=== PATIENT | female | born 1935 | race Caucasian/White ===

== ENCOUNTER 2017-06-29 19:58 | Inpatient (IN) | payer MEDICAID, OTHER ==
--- NOTE | 2017-06-29 20:07 | EDPHY ---
HPI/HX/ROS/PE/MDM Narrative: CHIEF COMPLAINT: Leg edema, unable to walk HPI: The patient is an anticoagulated 82 y/o female arriving via EMS complaining of worsening leg edema causing difficulty moving through her apartment. Her medical history includes WV, CVA, atrial fibrillation, CHF, pulmonary hypertension, peripheral vascular disease, and COPD with chronic respiratory failure. She was admitted here 3 weeks ago for acute renal failure due to diarrhea and was discharged to a rehab facility for about 2 weeks. She returned home to [facility] today. Her Lasix was reduced from 40mg to 20mg at the time of her transfer. She was able to walk into her facility, but since then has been developing worsening edema and is now unable to walk. She denies other acute symptoms. REVIEW OF SYSTEMS: Aside from elements discussed in the HPI, a comprehensive 10-point review of systems was reviewed and is negative. PMH: 1. WV with stents () 2. CVA (2008) 3. Atrial fibrillation - no anticoagulants due to fall and intracranial hemorrhage 4. CHF 5. Pulmonary hypertension 6. Peripheral vascular disease with recurrent ulcers 7. COPD with chronic respiratory failure on chronic O2 8. Fall resulting in intracranial hemorrhage, non-surgical 9. Stasis dermatitis 10. Cholecystectomy 11. Partial thyroidectomy 12. 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 Depression Prior medical records reviewed including transfer paperwork from [facility] and 6-day admission 06/08/17 for renal insufficiency. SOCIAL HISTORY: Lives at [facility]. Nonsmoker. No alcohol. PHYSICAL EXAM: General:Patient is alert, chronically-ill appearing, obese, in no acute distress. ENT:Eyes are normal to inspection. ENT inspection normal. Neck: Normal inspection. Full range of motion. Respiratory:No respiratory distress. Breath sounds normal bilaterally. Cardiovascular: Regular rate and rhythm. Strong peripheral pulses. Normal cap refill. Abdomen:The abdomen is nontender to palpation. There are no peritoneal signs. There are normal bowel sounds. Back: Normal to inspection. No tenderness to palpation. Skin: Normal color. No rash. Warm and dry. Extremities: 3+ pitting pedal edema bilaterally with chronic venous stasis changes. Neuro: Normal motor function. Normal sensory function. ED Course: This is a chronically-ill appearing 82 y/o female who presents with significant bilateral leg edema and inability to walk hours after being discharged home from rehab. Her Lasix dose was halved upon her return home, which is likely contributing to her symptoms today. Plan for IV, labs, EKG. The 12 lead EKG was interpreted by myself. See hard copy and/or "tracemaster" electronic copy for interpretation. Spoke with hospitalist service. Dr. Gonzalez accepts admission. - Data Points Laboratory Results: Laboratory Results 06/29/17 21:01 06/29/17 21:01 06/29/17 06/29/17 21:01 21:01 WBC 9.02 10^3/uL 10^3/uL (3.80-9.50) RBC 3.03 10^6/uL L 10^6/uL (4.18-5.33) Hgb 9.4 g/dL L g/dL (12.6-16.3) Hct 27.8 % L % (38.0-47.0) MCV 91.7 fL fL (81.5-99.8) MCH 31.0 pg pg (27.9-34.1) MCHC 33.8 g/dL g/dL (32.4-36.7) RDW 16.0 % H % (11.5-15.2) Plt Count 197 10^3/uL 10^3/uL (150-400) MPV 12.1 fL H fL (8.7-11.7) Neut % (Auto) 72.1 % % (39.3-74.2) Lymph % (Auto) 12.9 % L % (15.0-45.0) [place] % (Auto) 12.7 % % (4.5-13.0) Eos % (Auto) 0.9 % % (0.6-7.6) Baso % (Auto) 0.7 % % (0.3-1.7) Nucleat RBC Rel Count 0.0 % % (0.0-0.2) Absolute Neuts (auto) 6.51 10^3/uL H 10^3/uL (1.70-6.50) Absolute Lymphs (auto) 1.16 10^3/uL 10^3/uL (1.00-3.00) Absolute Monos (auto) 1.15 10^3/uL H 10^3/uL (0.30-0.80) Absolute Eos (auto) 0.08 10^3/uL 10^3/uL (0.03-0.40) Absolute Basos (auto) 0.06 10^3/uL 10^3/uL (0.02-0.10) Absolute Nucleated RBC 0.00 10^3/uL 10^3/uL (0-0.01) Immature Gran % 0.7 % % (0.0-1.1) Immature Gran # 0.06 10^3/uL 10^3/uL (0.00-0.10) Sodium 132 mEq/L L mEq/L (134-144) Potassium 4.7 mEq/L mEq/L (3.5-5.2) Chloride 100 mEq/L mEq/L (97-110) Carbon Dioxide 24 mEq/l mEq/l (22-31) Anion Gap 8 mEq/L mEq/L (8-16) BUN 26 mg/dL H mg/dL (7-23) Creatinine 1.0 mg/dL mg/dL (0.6-1.0) Estimated GFR 53 Glucose 86 mg/dL mg/dL (70-100) Calcium 8.7 mg/dL mg/dL (8.5-10.4) Troponin I < 0.012 ng/mL ng/mL (0.000-0.034) NT-Pro-B Natriuret Pep 4490 pg/mL H pg/mL (0-450) General Initial Vital Signs: Initial Vital Signs Temperature (C) 36.3 C 06/29/17 20:18 Heart Rate 97 06/29/17 20:18 Respiratory Rate 18 06/29/17 20:18 Blood Pressure 97/49 L 06/29/17 20:18 O2 Sat (%) 99 06/29/17 20:18 O2 Delivery Mode Nasal Cannula O2 (L/minute) 2 Allergies/Adverse Reactions: acetaminophen Allergy (Verified 06/08/17 18:15) Rash amoxicillin [Amoxicillin] Allergy (Verified 06/08/17 11:08) cephalexin monohydrate [From Keflex] Allergy (Verified 06/08/17 11:08) diclofenac [Diclofenac] Allergy (Verified 06/08/17 11:08) lisinopril Allergy (Verified 06/08/17 11:08) Sulfa (Sulfonamide Antibiotics) Allergy (Verified 06/08/17 11:08) warfarin sodium [From Coumadin] Allergy (Verified 06/08/17 11:08) DICLO Allergy (Uncoded 03/30/14 12:23) Home Medications: Medication Instructions Recorded Aspirin [Aspirin 325 mg (*)] 325 mg PO DAILY 08/30/15 Cholecalciferol Vit D3 [Vitamin D3 2,000 units PO DAILY 08/30/15 (*)] Magnesium Hydroxide [Milk of 30 ml PO DAILY PRN 08/30/15 Magnesia (*)] Mirtazapine [Remeron] 15 mg PO HS 08/30/15 Simvastatin 40 mg PO HS 08/30/15 Sodium Chloride [Deep Sea] 2 ml NS PRN PRN 08/30/15 Doxycycline Hyclate 100 mg PO DAILY 06/08/17 Levothyroxine [Synthroid 125 mcg 125 mcg PO DAILY06 06/08/17 (*)] Furosemide [Lasix 20 MG (*)] 20 mg PO DAILY #30 tab 06/14/17 Metoprolol Succinate Xr [Toprol Xl 12.5 mg PO DAILY #30 tab.sr 06/14/17 25 mg (*)] Ondansetron Odt [Zofran Odt 4 mg 4 mg PO Q4 PRN 06/29/17 (*)] traMADol [Ultram 50 mg (*)] 50 mg PO Q6 PRN 06/29/17 Departure - Departure Disposition: [facility] Acute Clinical Impression: Peripheral edema, Cannot walk CHF (congestive heart failure) Qualifiers: Congestive heart failure type: unspecified congestive heart failure type Congestive heart failure chronicity: acute on chronic Qualified Code(s): I50.9 - Heart failure, unspecified Failure to thrive Qualifiers: Failure to thrive age range: in adult Qualified Code(s): R62.7 - Adult failure to thrive Condition: Fair Report Scribed for: Sebastian Haile Report Scribed by: Vita Lima Date of Report: 06/29/17 Time of Report: 20:07 Physician Review and Approval Statement: Portions of this note were transcribed by an ED scribe. I personally performed the history, physical exam, and medical decision making; and confirm the accuracy of the information in the transcribed note.
--- NOTE | 2017-06-29 20:19 | CPEKG ---
Heart Rate: 77 RR Interval: 779 QRSD Interval: 104 QT Interval: 392 QTC Interval: 444 QRS [place]: 38 T Wave [place]: 148 EKG Severity - ABNORMAL ECG - EKG Impression: ATRIAL FIBRILLATION EKG Impression: LOW VOLTAGE THROUGHOUT EKG Impression: NONSPECIFIC T ABNORMALITIES, LATERAL LEADS Electronically Signed By: Dusty Prather 01-Jul-2017 16:15:26
[2017-06-29 21:09] LABS: % IMMATURE GRANULYOCYTES 0.7 % (0.0-1.1); ABSOLUTE IMMATURE GRANULOCYTES 0.06 10^3/uL (0.00-0.10); ADD DIFF? NO; ADD MORPH? NO; ADD SCAN? NO; ATYPICAL LYMPHOCYTE FLAG 0 (0-99); FRAGMENT RBC FLAG 0 (0-99); HEMATOCRIT 27.8 % (38.0-47.0); HEMOGLOBIN 9.4 g/dL (12.6-16.3); LEFT SHIFT FLG 0 (0-99); LIPEMIA HEMOLYSIS FLAG 90 (0-99); MEAN CELL HEMOGLOBIN CONCENTR. 33.8 g/dL (32.4-36.7); MEAN CELL VOLUME 91.7 fL (81.5-99.8); MEAN PLATELET VOLUME 12.1 fL (8.7-11.7); PLATELET CLUMPS FLAG 0 (0-99); PLATELET COUNT 197 10^3/uL (150-400); RED BLOOD CELL COUNT 3.03 10^6/uL (4.18-5.33)
[2017-06-29 21:30] LABS: ANION GAP 8 mEq/L (8-16); CALCIUM 8.7 mg/dL (8.5-10.4); CARBON DIOXIDE 24 mEq/l (22-31); CHLORIDE 100 mEq/L (97-110); GLOMERULAR FILTRATION RATE 53; GLUCOSE 86 mg/dL (70-100); POTASSIUM 4.7 mEq/L (3.5-5.2); SODIUM 132 mEq/L (134-144)
[2017-06-29 21:42] LABS: TROPONIN I < 0.012 ng/mL (0.000-0.034)
[2017-06-29] MEDS ORDERED: ONDANSETRON 4 MG/2 ML VIAL IVP PRN (22:24)
[2017-06-29] MEDS ORDERED: ACETAMINOPHEN 325 MG TAB PO PRN (22:24)
[2017-06-29] MEDS ORDERED: ONDANSETRON DISINTEGRATING 4 MG TAB PO PRN (22:24)
--- NOTE | 2017-06-29 23:07 | PDGENHP ---
History and Physical - Chief Complaint Leg swelling - History of Present Illness 82 yo F w/ hx of diastolic heart failure and mild systolic dysfunction and AF sent to ED from [facility] w/ lower extremity edema. Patient was admitted here in May for ELBA in the setting of diarrheal illness and ongoing diuretic use. This improved with fluids and lowering of furosemide dose from 40 mg to 20 mg PO qD. She has a known history of falls and gait instability so she was discharged to a SNF for rehabilitation. She spent a couple of weeks there, but once she returned to her [facility], they were concerned about her leg swelling so they sent her to the ED. Patient is asymptomatic but she does feel that her legs are somewhat more swollen than usual. History Information - Allergies/Home Medication List Allergies/Adverse Reactions: acetaminophen Allergy (Verified 06/08/17 18:15) Rash amoxicillin [Amoxicillin] Allergy (Verified 06/08/17 11:08) cephalexin monohydrate [From Keflex] Allergy (Verified 06/08/17 11:08) diclofenac [Diclofenac] Allergy (Verified 06/08/17 11:08) lisinopril Allergy (Verified 06/08/17 11:08) Sulfa (Sulfonamide Antibiotics) Allergy (Verified 06/08/17 11:08) warfarin sodium [From Coumadin] Allergy (Verified 06/08/17 11:08) DICLO Allergy (Uncoded 03/30/14 12:23) Home Medications: Aspirin [Aspirin 325 mg (*)] 325 mg PO DAILY 08/30/15 [Last Taken 06/08/17] Cholecalciferol Vit D3 [Vitamin D3 (*)] 2,000 units PO DAILY 08/30/15 [Last Taken 06/08/17] Magnesium Hydroxide [Milk of Magnesia (*)] 30 ml PO DAILY PRN 08/30/15 [Last Taken Unknown] Mirtazapine [Remeron] 15 mg PO HS 08/30/15 [Last Taken 06/07/17] Simvastatin 40 mg PO HS 08/30/15 [Last Taken 06/06/17] Sodium Chloride [Deep Sea] 2 ml NS PRN PRN 08/30/15 [Last Taken Unknown] Doxycycline Hyclate 100 mg PO DAILY 06/08/17 [Last Taken 06/07/17] Levothyroxine [Synthroid 125 mcg (*)] 125 mcg PO DAILY06 06/08/17 [Last Taken Unknown] Ondansetron Odt [Zofran Odt 4 mg (*)] 4 mg PO Q4 PRN 06/29/17 [Last Taken Unknown] traMADol [Ultram 50 mg (*)] 50 mg PO Q6 PRN 06/29/17 [Last Taken Unknown] I have personally reviewed and updated: family history, medical history - Past Medical History atrial fibrillation, CHF, CVA Additional medical history: MRSA infection on chronic suppressive doxycycline - Family History Positive for: cancer - Social History Smoking Status: Never smoked Review of Systems Review of Systems: ROS: 10pt was reviewed & negative except for what was stated in HPI & below Physical Exam Physical Exam: Temp Pulse Resp BP Pulse Ox 36.8 C 80 17 107/69 98 06/29/17 22:36 06/29/17 22:00 06/29/17 22:00 06/29/17 22:00 06/29/17 22:00 O2 (L/minute) 2 Constitutional: no apparent distress, obese Eyes: PERRL, EOMI Ears, Nose, Mouth, Throat: moist mucous membranes, no oral mucosal ulcers Cardiovascular: no murmur, rub, or gallop, irregularly irregular, edema (3+ b/l ANGELINE) Respiratory: no respiratory distress, clear to auscultation Gastrointestinal: normoactive bowel sounds, soft, non-tender abdomen Skin: warm, other (Hyperpigmentation c/w chronic venous stasis b/l LE's) Neurologic: AAOx3, CN II-XII Intact Psychiatric: interacting appropriately, not anxious Lab Data & Imaging Review 06/29/17 21:01 06/29/17 21:01 WBC 9.02 10^3/uL (3.80-9.50) 06/29/17 21:01 RBC 3.03 10^6/uL (4.18-5.33) L 06/29/17 21:01 Hgb 9.4 g/dL (12.6-16.3) L 06/29/17 21:01 Hct 27.8 % (38.0-47.0) L 06/29/17 21:01 MCV 91.7 fL (81.5-99.8) 06/29/17 21:01 MCH 31.0 pg (27.9-34.1) 06/29/17 21:01 MCHC 33.8 g/dL (32.4-36.7) 06/29/17 21:01 RDW 16.0 % (11.5-15.2) H 06/29/17 21:01 Plt Count 197 10^3/uL (150-400) 06/29/17 21:01 MPV 12.1 fL (8.7-11.7) H 06/29/17 21:01 Neut % (Auto) 72.1 % (39.3-74.2) 06/29/17 21:01 Lymph % (Auto) 12.9 % (15.0-45.0) L 06/29/17 21:01 [place] % (Auto) 12.7 % (4.5-13.0) 06/29/17 21:01 Eos % (Auto) 0.9 % (0.6-7.6) 06/29/17 21:01 Baso % (Auto) 0.7 % (0.3-1.7) 06/29/17 21:01 Nucleat RBC Rel Count 0.0 % (0.0-0.2) 06/29/17 21:01 Absolute Neuts (auto) 6.51 10^3/uL (1.70-6.50) H 06/29/17 21:01 Absolute Lymphs (auto) 1.16 10^3/uL (1.00-3.00) 06/29/17 21:01 Absolute Monos (auto) 1.15 10^3/uL (0.30-0.80) H 06/29/17 21:01 Absolute Eos (auto) 0.08 10^3/uL (0.03-0.40) 06/29/17 21:01 Absolute Basos (auto) 0.06 10^3/uL (0.02-0.10) 06/29/17 21:01 Absolute Nucleated RBC 0.00 10^3/uL (0-0.01) 06/29/17 21:01 Immature Gran % 0.7 % (0.0-1.1) 06/29/17 21:01 Immature Gran # 0.06 10^3/uL (0.00-0.10) 06/29/17 21:01 Sodium 132 mEq/L (134-144) L 06/29/17 21:01 Potassium 4.7 mEq/L (3.5-5.2) 06/29/17 21:01 Chloride 100 mEq/L (97-110) 06/29/17 21:01 Carbon Dioxide 24 mEq/l (22-31) 06/29/17 21:01 Anion Gap 8 mEq/L (8-16) 06/29/17 21:01 BUN 26 mg/dL (7-23) H 06/29/17 21:01 Creatinine 1.0 mg/dL (0.6-1.0) 06/29/17 21:01 Estimated GFR 53 06/29/17 21:01 Glucose 86 mg/dL (70-100) 06/29/17 21: Calcium 8.7 mg/dL (8.5-10.4) 06/29/17 21:01 Troponin I < 0.012 ng/mL (0.000-0.034) 06/29/17 21: NT-Pro-B Natriuret Pep 4490 pg/mL (0-450) H 06/29/17 21:01 Visualized and Interpreted EKG results: Yes EKG Interpretation: Positive for: other (Afib rate controlled, low voltage) Assessment & Plan Assessment: 82 yo F w/ diastolic heart failure, mild systolic dysfunction, and AF presents with lower extremity edema. Plan: 1. Chronic diastolic heart failure with lower extremity edema - I do not get the impression that this is a significant, acute exacerbation. BNP 4490 but this is lower than in May when she was admitted for dehydration. Her furosemide dose was lowered from 40 mg PO qd to 20 mg PO qd at that time and this may have led to cosmetic difference. Vitals signs are stable. There is a likely a significant component of venous insufficiency and maybe lymphedema from the appearance of her legs. Patient herself is asymptomatic and has chronic gait instability, which her BRITTANEY was worried about. - Increase furosemide to previous, stable dose of 40 mg qD for gentle diuresis - Continue ASA, statin, BB - PT/OT evaluations, may benefit from leg wraps 2. Chronic AF - On ASA for this; AC discontinued in setting of falls and prior stroke. Rate controlled on low dose metoprolol, will continue. 3. Hx of MRSA infection - On chronic suppressive doxycycline. 4. Hypothyroid - Continue home LTX 5. Falls, failure to thrive, gait instability - Likely multifactorial from obesity, age, significant edema, hx CVA, deconditioning, etc. She had a recent stay in a SNF, [facility] felt unable to care for her - PT/OT/CM evaluations Diet - Regular Code - Ppx - LMWH Dispo - Admit to observation status
[2017-06-30 04:53] LABS: % IMMATURE GRANULYOCYTES 1.1 % (0.0-1.1); ABSOLUTE IMMATURE GRANULOCYTES 0.08 10^3/uL (0.00-0.10); ADD DIFF? NO; ADD MORPH? NO; ADD SCAN? NO; ATYPICAL LYMPHOCYTE FLAG 20 (0-99); FRAGMENT RBC FLAG 0 (0-99); HEMATOCRIT 24.6 % (38.0-47.0); LEFT SHIFT FLG 0 (0-99); LIPEMIA HEMOLYSIS FLAG 80 (0-99); MEAN CELL HEMOGLOBIN CONCENTR. 32.5 g/dL (32.4-36.7); MEAN CELL VOLUME 92.1 fL (81.5-99.8); MEAN PLATELET VOLUME 12.5 fL (8.7-11.7); PLATELET CLUMPS FLAG 0 (0-99); PLATELET COUNT 169 10^3/uL (150-400); RED BLOOD CELL COUNT 2.67 10^6/uL (4.18-5.33); RED CELL DISTRIBUTION WIDTH 16.2 % (11.5-15.2)
[2017-06-30 05:10] LABS: ANION GAP 6 mEq/L (8-16); CALCIUM 8.5 mg/dL (8.5-10.4); CARBON DIOXIDE 24 mEq/l (22-31); CHLORIDE 103 mEq/L (97-110); GLOMERULAR FILTRATION RATE 53; GLUCOSE 74 mg/dL (70-100); MAGNESIUM 1.8 mg/dL (1.6-2.3); POTASSIUM 4.5 mEq/L (3.5-5.2); SODIUM 133 mEq/L (134-144)
[2017-06-30] MEDS: LEVOTHYROXINE 125 MCG TAB PO SCH (05:45)
[2017-06-30] MEDS ORDERED: METOPROLOL SUCCINATE XR 25 MG TAB PO SCH (09:00)
[2017-06-30] MEDS ORDERED: FUROSEMIDE 40 MG TAB PO SCH (09:00)
[2017-06-30] MEDS ORDERED: MAGNESIUM SULF 2 GM/WATER 50 ML IV ONE (09:32)
--- NOTE | 2017-06-30 09:48 | HOSPPROG ---
Hospitalist Progress Note Assessment/Plan: #Chronic LE edema: she states unchanged. Venous insufficiency contributing. She does not want to wear stocking. Elevate legs. #NSVT: this morn, no symptoms. Goal K 4, mg 2 #Hypotension: asymptomatic. Hold Lasix and BB. IV albumin #Chronic systolic (EF 43%) and diastolic HF: denies SOB. CXR pending #Deconditioning: h/o falls. Edema contributing. PT/OT #Right buttock pressure injury: present on admission. Wound care #hypothyroidism: LT4 #h.o MRSA infection: chronic immunosupression with Doxy #Diet: regular #DVT ppx: lovenox #Disp: warrants inpt admission with hypotension, NSVT, requires IV mag, fluids Subjective: Had 10 run NSVT this morning. No CP, SOB or dizziness. Objective: Vital Signs Temp Pulse Resp BP Pulse Ox 36.6 C 80 17 87/62 L 98 06/30/17 08:00 06/30/17 08:00 06/30/17 08:00 06/30/17 08:00 06/30/17 08:00 Laboratory Results 06/30/17 04:02 06/30/17 04:02 06/29/17 06/30/17 07/01/17 05:59 05:59 05:59 Intake Total 0 Output Total 0 Balance 0 - Physical Exam Constitutional: chronically ill appearing Eyes: PERRL Ears, Nose, Mouth, Throat: moist mucous membranes, hearing normal Cardiovascular: regular rate and rhythym, edema (+3-4 pitting edema to knees, BL ) Respiratory: no respiratory distress Gastrointestinal: normoactive bowel sounds Genitourinary: no bladder fullness Skin: warm Musculoskeletal: full muscle strength Neurologic: CN II-XII Intact Psychiatric: depressed, flat affect ICD10 Worksheet Patient Problems: Problems Problem Status Onset CHF (congestive heart failure) Acute Cannot walk Acute Failure to thrive Acute Peripheral edema Acute Acute renal failure Acute Cellulitis of right lower extremity Acute Diarrhea Acute Hypotension Acute Volume depletion Acute MRSA (methicillin resistant Staphylococcus aureus) Chronic 08/13/15
[2017-06-30] MEDS: ASPIRIN 325 MG TAB PO SCH (11:22)
[2017-06-30] MEDS: CHOLECALCIFEROL VIT D3 1,000 UNITS TAB PO SCH (11:22)
[2017-06-30] MEDS: DOXYCYCLINE HYCLATE 100 MG CAP/TAB PO SCH (11:22)
--- NOTE | 2017-06-30 11:48 | ASMTCASEMG ---
Living Arrangements What is your living Answers: Alone arrangement? Who do you live with? Type Of Residence What kind of residence do Answers: Assisted Living you live in? Type of Residence Facility Name Notes: [facility] Discharge Plan Comments Coordination Status Comments Notes: Pt is a 82 y/o female admitted for CHF and FTT. Pt was recently here at [facility] on 06/09 and discharged to [facility] for rehab. ALEJANDRA received a call from Nory from [facility] (P#: [phone]) and she is recommending that pt goes to SNF at this time. Nory feels that it would be unsafe for pt to return to assisted living. CM spoke w/ Stanley RN regarding d/c POC. Therapies have been ordered and awaiting recommendation. Needs are TBD at this time. CM to follow. Plan: TBD Date Signed: 06/30/2017 11:48 AM Electronically Signed By:JOHN Diana
[2017-06-30] MEDS ORDERED: NS 1,000 ML IV SCH (12:15)
--- NOTE | 2017-06-30 15:27 | WOCRNPDOC ---
TIA Advanced Assessment Note - Skin Integrity Problem, Advanced Assess Bilateral Lateral Leg Venous Stasis Ulcer Dressing Type: Open to Air Allie Wound Tissue: Hemosiderin Staining (mild), Shiny, Taught, Scarred Skin Integrity Problem Comment: Small open wound <0.5x0.5x0.1 present on left leg draining clear fluid. Not a venous stasis ulcer but an opening where the large amount of excess edema can drain. Cover with mepilex transfer and ABD. No need for wound care to follow. Patient adamantly declines any kind of compression. Right Buttock Pressure Injury Dressing Type: Allevyn Life Exudate Amount: None Wound Bed Constitution: Smooth Tissue, Red/[place] - Non Granular Tissue, Dried Exudate Site Measurement - Head-to-Toe Length X Width X Depth (cm): 1x1x0.2 Pressure Injury Stage: Stage 3 Pressure Injury Present on Admit: Yes Skin Integrity Problem Comment: Obese patient with distorted anatomy but this wound is over her sacrum when she is supine. It is healing and now presents as mostly partial thickness but was full thickness. No evidence of infection. Gluteal Cleft Dermatitis Dressing Type: Allevyn Life Skin Integrity Problem Comment: Blanching tender erythema. Please leave this open to air and apply dimethicone cream. Right Medial Proximal Thigh Dressing Type: Open to Air Site Measurement - Head-to-Toe Length X Width X Depth (cm): 0.6x0.6x0, with larger area of purple discoloration 4x1x0 Pressure Injury Present on Admit: Yes (unclear if its a pressure injury but it is present on admission) Skin Integrity Problem Comment: Small partial thickness opening surrounded by a larger area of purple. Unclear if this is DTI or bruise. Per report patient had some tight briefs on. Will recheck wednesday to see if etiology is clarifying. BIANCA Angel in room for assessment. Darlin ÁLVAREZ helped with care.
[2017-06-30] MEDS: MIRTAZAPINE 15 MG TAB PO SCH (21:01)
[2017-06-30] MEDS: ATORVASTATIN CALCIUM 20 MG TAB PO SCH (21:01)
[2017-07-01] MEDS: LEVOTHYROXINE 125 MCG TAB PO SCH (05:30)
[2017-07-01 09:20] LABS: ANION GAP 11 mEq/L (8-16); CALCIUM 9.1 mg/dL (8.5-10.4); CARBON DIOXIDE 22 mEq/l (22-31); CHLORIDE 105 mEq/L (97-110); GLOMERULAR FILTRATION RATE 53; GLUCOSE 75 mg/dL (70-100); POTASSIUM 4.4 mEq/L (3.5-5.2); SODIUM 138 mEq/L (134-144)
[2017-07-01] MEDS: ENOXAPARIN 40 MG/0.4 ML SYR SC SCH (10:35)
[2017-07-01] MEDS: CHOLECALCIFEROL VIT D3 1,000 UNITS TAB PO SCH (10:35)
[2017-07-01] MEDS: ASPIRIN 325 MG TAB PO SCH (10:36)
[2017-07-01] MEDS: DOXYCYCLINE HYCLATE 100 MG CAP/TAB PO SCH (10:36)
--- NOTE | 2017-07-01 13:00 | HOSPPROG ---
Hospitalist Progress Note Assessment/Plan: #Chronic LE edema: she states unchanged. Venous insufficiency contributing. She does not want to wear stocking. Elevate legs. #NSVT: this morn, no symptoms. Goal K 4, mg 2 #Hypotension: Improved with small amount IVFs #Chronic systolic (EF 43%) and diastolic HF: denies SOB. Not volume overloaded on exam or CXR #Deconditioning: h/o falls. Edema contributing. PT/OT. Referral for SNF pending #Right buttock pressure injury: present on admission. Wound care #hypothyroidism: LT4 #h.o MRSA infection: chronic immunosupression with Doxy #Diet: regular #DVT ppx: lovenox #Goals: met with Palliative Care. DNR, agrees to SNF #Disp: warrants inpt admission with hypotension, NSVT, requires IV mag, fluids Subjective: no dizziness or lightheadedness Objective: Vital Signs Temp Pulse Resp BP Pulse Ox 36.6 C 80 20 97/64 L 98 07/01/17 08:00 07/01/17 08:00 07/01/17 08:00 07/01/17 08:00 07/01/17 08:00 Laboratory Results 06/30/17 04:02 07/01/17 09:00 06/30/17 07/01/17 07/02/17 05:59 05:59 05:59 Intake Total 0 450 Output Total 0 500 Balance 0 -50 - Physical Exam Constitutional: chronically ill appearing Eyes: PERRL Ears, Nose, Mouth, Throat: moist mucous membranes Cardiovascular: regular rate and rhythym, edema (+3 LE edema) Respiratory: no respiratory distress Gastrointestinal: normoactive bowel sounds Skin: warm Musculoskeletal: generalized weakness Neurologic: AAOx3 Psychiatric: interacting appropriately ICD10 Worksheet Patient Problems: Problems Problem Status Onset CHF (congestive heart failure) Acute Cannot walk Acute Failure to thrive Acute Peripheral edema Acute Acute renal failure Acute Cellulitis of right lower extremity Acute Diarrhea Acute Hypotension Acute Volume depletion Acute MRSA (methicillin resistant Staphylococcus aureus) Chronic 08/13/15
[2017-07-01] MEDS ORDERED: NS 1,000 ML IV SCH (13:15)
--- NOTE | 2017-07-01 14:16 | PDPCPN ---
Palliative Care Progress Note Assessment/Plan: Referring provider: Dr Figueroa Reason for consult: Complex medical decision making Symptom control HPI: Daxa Sharif (Jean) is a 82 yo female with PMH CHF, chronic LE edema, and a fib admitted to the hospital with lower leg edema. Recent hospitalization for diarrhea where her lasix was reduced due to hypotension and ELBA. Here restarted on lasix dose with medical management of chronic LE edema. She has a history of frequent falling with no injuries noted. Hospitalization complicated by asymptomatic NSVT. She has made statements including " just let me ". Palliative care consulted for complex medical decision making. Met with Demetrius this morning. She stated while she hopes to "get home" someday she understands this is not likely possible. Home for her means [facility] where she spent many years raising her family. She came to [place] about 10 years ago to live with her son Olaf. She moved into [facility] when she required increasing care and has been there for many years. While she does not like some of the aspects of living in [place], she does state she enjoys [facility] and her apartment. She feels she has a good quality of life there because she is able to do what she likes when she wants to. She feels she can live somewhat independently although has help around if needed. Her frequent falling is not an issue for her as she states "I don't get hurt". She does not like the hospital or SNF because she does not have control over when to get up, what to do, and when to do it. She is focused on living a good quality of life and "I don't want to live just to exist." She stated if she got worse/weaker in the future and her health declined then she would "want to take a pill to ". She states a poor quality of life would be one where she was not able to make her own decisions or do the things she enjoys. We discussed code status and she states her MOST form on file is correct and that she would not want CPR or intubation. Also filled out an MDPOA with her son Olaf being the person she trusts most to make medical decisions for her if she is unable to. Assessment: Physical: - Pain: appears comfortable -tylenol PRN - weakness/falls: - PT/OT - agreeable to SNF/rehab Emotional/psychological: Doing ok. Has support from family if she needs it. Advanced Care Planning: Is patient decisional?: yes Code Status: DNR/DNI- confirmed MOST on file is correct with her wishes MD HARDEN: son Olaf is MDPOA. Plan: Demetrius is agreeable to rehab but does not want to return back to [facility]. Ultimately her goal is to be at [facility] with a focus on quality of life. If she does not have a good quality of life would not want to return back to the hospital or have life prolonging measures. Subjective: I don't like it here Objective: Social History: . Has 6 children, 4 still living 1 son local. Enjoys working with [employer] and reading her books. Medication list reviewed ROS: General: fatigue, weakness ENT: negative Resp: negative GI: negative : negative MS: negative Skin: negative Neuro: negative Psych: negative Functional assessment: PPS: 50% Functional status: needs some assistance with ADLs Vital Signs Temp Pulse Resp BP Pulse Ox 36.6 C 80 20 97/64 L 98 07/01/17 08:00 07/01/17 08:00 07/01/17 08:00 07/01/17 08:00 07/01/17 08:00 Laboratory Results 06/30/17 04:02 07/01/17 09:00 06/30/17 07/01/17 07/02/17 05:59 05:59 05:59 Intake Total 0 450 Output Total 0 500 300 Balance 0 -50 -300 Physical Exam - Physical Exam General Appearance: alert, no apparent distress Respiratory: No respiratory distress, No accessory muscle use Skin: normal color, warm/dry Extremities: pedal edema Neuro/Psych: alert, oriented x 3 ICD10 Worksheet Patient Problems: Problems Problem Status Onset CHF (congestive heart failure) Acute Cannot walk Acute Failure to thrive Acute Palliative care encounter Acute Peripheral edema Acute Acute renal failure Acute Cellulitis of right lower extremity Acute Diarrhea Acute Hypotension Acute Volume depletion Acute MRSA (methicillin resistant Staphylococcus aureus) Chronic 08/13/15 - ICD10 Problem Qualifiers (1) Palliative care encounter
--- NOTE | 2017-07-01 15:13 | ASMTCMCOM ---
CM Note CM Note Notes: CM met w/ pt for dispo planning. CM spoke w/ Nory from [facility]. Nory reiterated that pt will not be able to return if she does not go to rehab. Pt is agreeable to going to [facility]. Referral sent to [facility]. Non triggering PASRR completed. After pt worked w/ PT, pt reported that she would like to live near her daughter in [place], [place]. However, pt has not spoken to daughter and does not have daughter's phone number. Pt reports that she is angry that she is not in control of her decision making. Pt stated that this is not the life she wants to live. CM spoke w/ Dr. Figueroa regarding d/c POC. Dr. Figueroa will put in order for palliative and spiritual care. CM left a msg for son and requested a call back. Needs are TBD at this time. CM to follow. Plan: TBD Date Signed: 07/01/2017 03:13 PM Electronically Signed By:JOHN Diana
[2017-07-01] MEDS: ATORVASTATIN CALCIUM 20 MG TAB PO SCH (20:36)
[2017-07-01] MEDS: MIRTAZAPINE 15 MG TAB PO SCH (20:36)
[2017-07-02 04:25] LABS: CALCIUM 8.5 mg/dL (8.5-10.4); CARBON DIOXIDE 24 mEq/l (22-31); CHLORIDE 106 mEq/L (97-110); GLOMERULAR FILTRATION RATE 53; GLUCOSE 72 mg/dL (70-100); SODIUM 137 mEq/L (134-144)
[2017-07-02 04:26] LABS: ANION GAP 7 mEq/L (8-16); POTASSIUM 3.8 mEq/L (3.5-5.2)
[2017-07-02] MEDS: LEVOTHYROXINE 125 MCG TAB PO SCH (06:01)
[2017-07-02] MEDS: FUROSEMIDE 20 MG TAB PO SCH (09:45)
[2017-07-02] MEDS: ASPIRIN 325 MG TAB PO SCH (09:45)
[2017-07-02] MEDS: METOPROLOL SUCCINATE XR 25 MG TAB PO SCH (09:45)
[2017-07-02] MEDS: DOXYCYCLINE HYCLATE 100 MG CAP/TAB PO SCH (09:46)
[2017-07-02] MEDS: ENOXAPARIN 40 MG/0.4 ML SYR SC SCH (09:46)
[2017-07-02] MEDS: CHOLECALCIFEROL VIT D3 1,000 UNITS TAB PO SCH (09:46)
--- NOTE | 2017-07-02 10:11 | HOSPPROG ---
Hospitalist Progress Note Assessment/Plan: #Chronic LE edema: she states unchanged. Venous insufficiency contributing. She does not want to wear stocking. Elevate legs. #NSVT: this morn, no symptoms. Goal K 4, mg 2 #Permanent AF: rate-controlled. ASA only with h/o falls. Resume BB #Hypotension: resolved with NS #Chronic systolic (EF 43%) and diastolic HF: denies SOB. Not volume overloaded on exam or CXR. Reduce lasix back to 20mg with low BP #Deconditioning: h/o falls. Edema contributing. PT/OT. Referral for SNF pending #Right buttock pressure injury: present on admission. Wound care #hypothyroidism: LT4 #h.o MRSA infection: chronic immunosupression with Doxy #Diet: regular #DVT ppx: lovenox #Goals: met with Palliative Care. DNR, agrees to SNF #Disp: awaiting placement at [facility], can DC when accepted Subjective: feeling better today. No dizziness Objective: Vital Signs Temp Pulse Resp BP Pulse Ox 36.3 C 90 16 108/79 98 07/02/17 07:30 07/02/17 09:34 07/02/17 09:34 07/02/17 09:34 07/02/17 09:34 Laboratory Results 07/02/17 03:38 07/01/17 07/02/17 07/03/17 05:59 05:59 05:59 Intake Total 1038 Output Total 425 Balance 613 - Physical Exam Constitutional: other (appears brighter today) Eyes: PERRL Ears, Nose, Mouth, Throat: moist mucous membranes, hearing normal Cardiovascular: regular rate and rhythym, no murmur, rub, or gallop, edema (+3 LE edema with clear leakage) Respiratory: no respiratory distress, no rales or rhonchi Gastrointestinal: normoactive bowel sounds Genitourinary: no bladder fullness Skin: warm Musculoskeletal: full muscle strength Neurologic: AAOx3, CN II-XII Intact Psychiatric: interacting appropriately ICD10 Worksheet Patient Problems: Problems Problem Status Onset CHF (congestive heart failure) Acute Cannot walk Acute Failure to thrive Acute Palliative care encounter Acute Peripheral edema Acute Acute renal failure Acute Cellulitis of right lower extremity Acute Diarrhea Acute Hypotension Acute Volume depletion Acute MRSA (methicillin resistant Staphylococcus aureus) Chronic 08/13/15
--- NOTE | 2017-07-02 11:19 | ASMTCMCOM ---
CM Note CM Note Notes: Imtiaz from [facility] report that they do not accept pts insurance. CM met w/ pt for dispo planning. Pt is agreeable to having referrals made to [facility] and to [facility]. Referrals made to both facilities. CM called Nory at [facility] and provided her updates. CM left a msg for pts son and requested a call back. CM to follow. Plan: [facility] or [facility] Date Signed: 07/02/2017 11:19 AM Electronically Signed By:JOHN Diana
--- NOTE | 2017-07-02 15:38 | WOCRNPDOC ---
WOCRN Advanced Assessment Note - Skin Integrity Problem, Advanced Assess Right Medial Proximal Thigh Dressing Type: Open to Air Exudate Amount: None Exudate Characteristic(s): None Integumentary Issue Intervention: Lotion/Cream Applied (dimethicone) Allie Wound Tissue: Blanching, Intact Allie Wound Swelling: None Wound Bed Color: Purple Site Odor: None Site Measurement - Head-to-Toe Length X Width X Depth (cm): [id number] Pressure Injury Stage: Deep Tissue Injury (DTI) Pressure Injury Present on Admit: No Skin Integrity Problem Comment: Linear, non-blanching area of ecchymosis noted to R upper posterior thigh, skin intact. While there is no clear etiology, the linear nature suggests this is a pressure injury, possibly r/t patient sitting for long periods of time on a bunched up chux or gown. Periwound skin is currently intact, and there is no erythema or swelling observed. Continue w/ pressure-relieving interventions, such as P500 bed and TAPS. Applied dimethicone lotion over this skin, and patient positioned on her R side using TAPS. Wound RN will reassess on Friday 07/06.
--- NOTE | 2017-07-02 16:30 | ASMTCMCOM ---
CM Note CM Note Notes: CM spoke w/ son regarding d/c POC. Son is requesting a nutrition consult. CM communicated this w/ Dr. Figueroa. Son reports that pt has a hx of heart attacks and strokes. CM recieved a call from Dayami from [facility] and was informed that pt may only have 5 days of 100% covered medicare days of rehab. After 21 days of rehab pt will owe $165/day. CM spoke w/ Elisha, production manager regarding d/c POC. Pt is agreeable to having a referral made to [facility]. CM made referral to [facility]. CM communicated this w/ son. CM to follow. Date Signed: 07/02/2017 04:29 PM Electronically Signed By:JOHN Diana
[2017-07-02] MEDS: ATORVASTATIN CALCIUM 20 MG TAB PO SCH (21:49)
[2017-07-02] MEDS: MIRTAZAPINE 15 MG TAB PO SCH (21:49)
[2017-07-03 04:30] LABS: ANION GAP 7 mEq/L (8-16); CALCIUM 8.5 mg/dL (8.5-10.4); CARBON DIOXIDE 24 mEq/l (22-31); CHLORIDE 105 mEq/L (97-110); CREATININE 0.9 mg/dL (0.6-1.0); GLOMERULAR FILTRATION RATE 60; GLUCOSE 76 mg/dL (70-100); POTASSIUM 3.9 mEq/L (3.5-5.2); SODIUM 136 mEq/L (134-144)
[2017-07-03] MEDS: LEVOTHYROXINE 125 MCG TAB PO SCH (06:02)
[2017-07-03] MEDS: CHOLECALCIFEROL VIT D3 1,000 UNITS TAB PO SCH (09:00)
[2017-07-03] MEDS: DOXYCYCLINE HYCLATE 100 MG CAP/TAB PO SCH (09:00)
[2017-07-03] MEDS: ENOXAPARIN 40 MG/0.4 ML SYR SC SCH (09:00)
[2017-07-03] MEDS: ASPIRIN 325 MG TAB PO SCH (09:00)
--- NOTE | 2017-07-03 09:31 | HOSPPROG ---
Hospitalist Progress Note Assessment/Plan: #Chronic LE edema: she states unchanged. Venous insufficiency contributing. Still won't stockings -will not increase Lasix with soft BP. Elevate legs. #NSVT: this morn, no symptoms. Goal K 4, mg 2 #Permanent AF: rate-controlled. ASA only with h/o falls. Resume BB #Hypotension: stable. No symptoms #Chronic systolic (EF 43%) and diastolic HF: denies SOB. Not volume overloaded on exam or CXR. -Reduce lasix back to 20mg with low BP #Deconditioning: h/o falls. Edema contributing. PT/OT. Referral for SNF pending #Right buttock pressure injury: present on admission. Wound care #hypothyroidism: LT4 #h.o MRSA infection: chronic immunosupression with Doxy #Diet: regular #DVT ppx: lovenox #Goals: met with Palliative Care. DNR, agrees to SNF #Disp: awaiting referral at [facility] #Goals: had extensive conversation with son about goals. Her goal is to be back at [facility] to enjoy her activities. Son wants to try rehab and she how she does. I recommended that Palliative Care follows here when she leaves Time spent on visit: 40 min bedside with patient discussing goals and with son on phone Subjective: " I want to back to [facility]" Objective: Vital Signs Temp Pulse Resp BP Pulse Ox 36.8 C 82 18 95/60 L 98 07/03/17 08:00 07/03/17 08:00 07/03/17 08:00 07/03/17 08:00 07/03/17 08:00 Laboratory Results 07/03/17 03:24 07/02/17 07/03/17 07/04/17 05:59 05:59 05:59 Intake Total 1038 560 Output Total 425 450 Balance 613 110 - Physical Exam Eyes: PERRL Ears, Nose, Mouth, Throat: moist mucous membranes Cardiovascular: edema (+2-3 LE edmea) Respiratory: no rales or rhonchi Gastrointestinal: normoactive bowel sounds Genitourinary: No bertrand in urethra Musculoskeletal: full muscle strength Neurologic: AAOx3 Psychiatric: flat affect ICD10 Worksheet Patient Problems: Problems Problem Status Onset CHF (congestive heart failure) Acute Cannot walk Acute Failure to thrive Acute Palliative care encounter Acute Peripheral edema Acute Acute renal failure Acute Cellulitis of right lower extremity Acute Diarrhea Acute Hypotension Acute Volume depletion Acute MRSA (methicillin resistant Staphylococcus aureus) Chronic 08/13/15
[2017-07-03] MEDS: FUROSEMIDE 20 MG TAB PO SCH (10:44)
[2017-07-03] MEDS: METOPROLOL SUCCINATE XR 25 MG TAB PO SCH (10:44)
[2017-07-03] MEDS: MIRTAZAPINE 15 MG TAB PO SCH (20:31)
[2017-07-03] MEDS: ATORVASTATIN CALCIUM 20 MG TAB PO SCH (20:31)
[2017-07-03 20:51] LABS: COLOR YELLOW; LEUKOCYTE ESTERASE,URINE TRACE (NEGATIVE); NITRITE,URINE NEGATIVE (NEGATIVE)
[2017-07-03 20:58] LABS: AMORPHOUS PRESENT /hpf (NONE-1+); BACTERIA TRACE /hpf (NONE SEEN); MUCUS TRACE /lpf (NONE-1+); RBC,URINE 50-182 /hpf (0-3); YEAST PRESENT /hpf (NONE SEEN)
[2017-07-04] MEDS: LEVOTHYROXINE 125 MCG TAB PO SCH (05:14)
--- NOTE | 2017-07-04 08:47 | HOSPPROG ---
Hospitalist Progress Note Assessment/Plan: #Chronic LE edema: she states unchanged. Venous insufficiency contributing. Still won't stockings. Encourage to elevate legs -increase to 40mg PO lasix (no IV with soft BP) #NSVT: this morn, no symptoms. Goal K 4, mg 2 #Permanent AF: rate-controlled. ASA only with h/o falls. Resume BB #Hypotension: stable. No symptoms #Chronic systolic (EF 43%) and diastolic HF: denies SOB. Not volume overloaded on exam or CXR. #Deconditioning: h/o falls. Edema contributing. PT/OT. Referral for SNF pending #Right buttock pressure injury: present on admission. 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 Discussed SSRI and she is agreeable. Zoloft 25mg #Diet: regular #DVT ppx: lovenox #Goals: met with Palliative Care. DNR, agrees to SNF #Disp: awaiting referral at [facility] #Goals: had extensive conversation with son about goals. Her goal is to be back at [facility] to enjoy her activities. Son wants to try rehab and she how she does. I recommended that Palliative Care follows here when she leaves Subjective: "want to get out of here" Objective: Vital Signs Temp Pulse Resp BP Pulse Ox 36.7 C 77 16 96/58 L 97 07/04/17 07:06 07/04/17 07:06 07/04/17 07:06 07/04/17 07:06 07/04/17 07:06 Laboratory Results 07/03/17 03:24 07/03/17 07/04/17 07/05/17 05:59 05:59 05:59 Intake Total 560 820 Output Total 450 450 Balance 110 370 - Physical Exam Constitutional: chronically ill appearing Eyes: PERRL Ears, Nose, Mouth, Throat: moist mucous membranes Cardiovascular: irregularly irregular, edema (+3 LE edema) Respiratory: no respiratory distress, no rales or rhonchi Gastrointestinal: normoactive bowel sounds Genitourinary: no bladder fullness Skin: warm Musculoskeletal: generalized weakness Neurologic: AAOx3 Psychiatric: depressed ICD10 Worksheet Patient Problems: Problems Problem Status Onset CHF (congestive heart failure) Acute Cannot walk Acute Failure to thrive Acute Palliative care encounter Acute Peripheral edema Acute Acute renal failure Acute Cellulitis of right lower extremity Acute Diarrhea Acute Hypotension Acute Volume depletion Acute MRSA (methicillin resistant Staphylococcus aureus) Chronic 08/13/15
[2017-07-04] MEDS ORDERED: FUROSEMIDE 40 MG TAB PO SCH (09:45)
[2017-07-04] MEDS: METOPROLOL SUCCINATE XR 25 MG TAB PO SCH (10:02)
[2017-07-04] MEDS: ASPIRIN 325 MG TAB PO SCH (10:02)
[2017-07-04] MEDS: CHOLECALCIFEROL VIT D3 1,000 UNITS TAB PO SCH (10:02)
[2017-07-04] MEDS: ENOXAPARIN 40 MG/0.4 ML SYR SC SCH (10:03)
[2017-07-04] MEDS: DOXYCYCLINE HYCLATE 100 MG CAP/TAB PO SCH (10:03)
[2017-07-04] MEDS: FUROSEMIDE 20 MG TAB PO SCH (10:04)
[2017-07-04] MEDS ORDERED: NS 500 ML IV ONE (21:14)
[2017-07-04 21:34] LABS: HEMATOCRIT 24.4 % (38.0-47.0); HEMOGLOBIN 7.9 g/dL (12.6-16.3)
[2017-07-04] MEDS: ATORVASTATIN CALCIUM 20 MG TAB PO SCH (21:37)
[2017-07-04] MEDS: MIRTAZAPINE 15 MG TAB PO SCH (21:37)
[2017-07-05] MEDS: PANTOPRAZOLE SODIUM 40 MG VIAL IVP SCH ×3 (00:40→21:28)
[2017-07-05 01:32] LABS: HEMATOCRIT 20.7 % (38.0-47.0)
[2017-07-05 01:33] LABS: HEMOGLOBIN 6.6 g/dL (12.6-16.3)
[2017-07-05 05:47] LABS: HEMATOCRIT 21.9 % (38.0-47.0); HEMOGLOBIN 7.1 g/dL (12.6-16.3)
[2017-07-05 07:58] LABS: HEMOGLOBIN 7.7 g/dL (12.6-16.3)
[2017-07-05] MEDS: DOXYCYCLINE HYCLATE 100 MG CAP/TAB PO SCH (08:20)
[2017-07-05] MEDS: CHOLECALCIFEROL VIT D3 1,000 UNITS TAB PO SCH (08:20)
[2017-07-05] MEDS ORDERED: SERTRALINE HCL 25 MG TAB PO SCH (09:00)
--- NOTE | 2017-07-05 09:06 | HOSPPROG ---
Hospitalist Progress Note Assessment/Plan: #Acute blood loss anemia: 2 large bloody BMs overnight. s/p 1 unit. Hold ASA, Lovenox -EGD showed no lesions; some erythematous mucosa in gastric body/antrum that was biopsied -colonoscopy tomorrow #Hypotension: due to GIB\ -responding to IVFs, 2 units RBCs. If recurs, can use albumin to prevent further volume overload #Chronic LE edema: she states unchanged. Venous insufficiency contributing. Still won't stockings. Encourage to elevate legs -holding Lasix #Permanent AF: rate-controlled. ASA only with h/o falls. Resume BB #Chronic systolic (EF 43%) and diastolic HF: LE edema, no pulm edema. Hold lasix , BB with GIB #Deconditioning: h/o falls. Edema contributing. PT/OT. Referral for SNF pending #Right buttock pressure injury: present on admission. Wound care #hypothyroidism: LT4 #NSVT: one episode. Lytes at goal. #h.o MRSA infection: chronic immunosupression with Doxy #Depression: Remeron #Diet: regular #DVT ppx: hold Lovenox, SCDs #Goals: met with Palliative Care. DNR, agrees to SNF #Disp: awaiting referral at [facility] #Goals: had extensive conversation with son about goals. Her goal is to be back at [facility] to enjoy her activities. Son wants to try rehab and she how she does. I recommended that Palliative Care follows here when she leaves Critical care time spent: 50 min evaluating patient and reviewing labs, data and discussing plan with her son on the phone. Discussed with Dr. Rodriguez Subjective: 2 large bloody BMs last night and hypotenisve to SBPs 70. Denies dizziness, lightheadedness or abd pain Objective: Vital Signs Temp Pulse Resp BP Pulse Ox 36.4 C 74 18 81/41 L 100 07/05/17 07:29 07/05/17 08:00 07/05/17 07:29 07/05/17 08:00 07/05/17 07:29 Laboratory Results 07/05/17 07:45 07/03/17 03:24 07/04/17 07/05/17 07/06/17 05:59 05:59 05:59 Intake Total 820 1550 Output Total 450 Balance 370 1550 - Physical Exam Constitutional: other (appears ill, pale, lethargic) Eyes: PERRL Ears, Nose, Mouth, Throat: moist mucous membranes Cardiovascular: irregularly irregular, edema (+3 LE edema legs, unchanged) Respiratory: no respiratory distress, no rales or rhonchi Gastrointestinal: normoactive bowel sounds, soft, non-tender abdomen, No tenderness, No distension Genitourinary: no bladder fullness Skin: warm Musculoskeletal: generalized weakness Neurologic: AAOx3, CN II-XII Intact Psychiatric: interacting appropriately ICD10 Worksheet Patient Problems: Problems Problem Status Onset CHF (congestive heart failure) Acute Cannot walk Acute Failure to thrive Acute Palliative care encounter Acute Peripheral edema Acute Acute renal failure Acute Cellulitis of right lower extremity Acute Diarrhea Acute Hypotension Acute Volume depletion Acute MRSA (methicillin resistant Staphylococcus aureus) Chronic 08/13/15
[2017-07-05] MEDS ORDERED: NS 250 ML IV ONE (09:41)
[2017-07-05] MEDS: LEVOTHYROXINE 125 MCG TAB PO SCH ×2 (11:56→16:22)
[2017-07-05] MEDS ORDERED: ALTEPLASE 2 MG VIAL IVP PRN (12:03)
[2017-07-05] MEDS ORDERED: PEG 3350/NA SULF,BICARB,CL/KCL (GAVILYTE-G) 4000 ML BTL PO ONE (14:44)
--- NOTE | 2017-07-05 14:44 | GIREPORT ---
[facility] - Endoscopy Department Patient Name: Daxa Mcdonald Procedure Date: 07/05/2017 2:32 PM Patient Type: Inpatient Attending MD/ ER Physician: Kurt Valdes MD Procedure: Upper GI endoscopy Indications: Hematochezia Patient Profile: 82 year old female presents for evaluation of blood in her stools. Providers: Kurt Valdes MD Medicines: Monitored Anesthesia Care Complications: No immediate complications. Estimated blood loss: None. Description of Procedure: After obtaining informed consent, the endoscope was passed under direct vision. Throughout the procedure, the patient's blood pressure, pulse, and oxygen saturations were monitored continuously. The Endoscope was intro duced through the mouth, and advanced to the second part of duodenum. The [facility] er GI endoscopy was accomplished without difficulty. The patient tolerated th e procedure well. Findings: The examined esophagus was normal. A small hiatal hernia was present. Patchy mildly erythematous mucosa was found in the gastric body and in the gastric antrum. Biopsies were taken with a cold forceps for histology. The examined duodenum was normal. Estimated Blood Loss: Estimated blood loss: none. Post Op Diagnosis: - Normal esophagus. - Small hiatal hernia. - Erythematous mucosa in the gastric body and antrum. Biopsied. - Normal examined duodenum. - Etiology? No upper source of GI bleed seen. Colonosocpy tomorrow. Recommendation: - Perform a colonoscopy tomorrow. - Thank you for allowing me to participate in the care of your patient. Attending Participation: I personally performed the entire procedure. Kurt Valdes MD Kurt Valdes MD 07/05/2017 2:43:38 PM This report has been signed electronicallyKurt Valdes MD Number of Addenda: 0 Note Initiated On: 07/05/2017 2:32 PM [email or web address]}
[2017-07-05] MEDS ORDERED: LR 500 ML IV PRN (14:45)
[2017-07-05] MEDS ORDERED: NALOXONE HCL 0.4 MG/ML INJ IVP PRN (14:45)
[2017-07-05] MEDS ORDERED: ALBUTEROL 3 ML DEYVIAL IH PRN (14:45)
--- NOTE | 2017-07-05 14:45 | PDANEPAE ---
ANE Past Medical History - Pulmonary History Hx Oxygen in Use at Home: Yes O2 in Use at Home (L/minute): 2 Hx Sleep Apnea: Yes Sleep Apnea Screening Result - Last Documented: Positive - Endocrine History Hx Diabetes: No - Chronic Pain History Chronic Pain: No ANE Review of Systems Review of Systems: ANE Patient History - Allergies Allergies/Adverse Reactions: acetaminophen Allergy (Verified 06/08/17 18:15) Rash amoxicillin [Amoxicillin] Allergy (Verified 06/08/17 11:08) cephalexin monohydrate [From Keflex] Allergy (Verified 06/08/17 11:08) diclofenac [Diclofenac] Allergy (Verified 06/08/17 11:08) lisinopril Allergy (Verified 06/08/17 11:08) Sulfa (Sulfonamide Antibiotics) Allergy (Verified 06/08/17 11:08) warfarin sodium [From Coumadin] Allergy (Verified 06/08/17 11:08) DICLO Allergy (Uncoded 03/30/14 12:23) - Home Medications Home Medications: Aspirin [Aspirin 325 mg (*)] 325 mg PO DAILY 08/30/15 [Last Taken 06/08/17] Cholecalciferol Vit D3 [Vitamin D3 (*)] 2,000 units PO DAILY 08/30/15 [Last Taken 06/08/17] Magnesium Hydroxide [Milk of Magnesia (*)] 30 ml PO DAILY PRN 08/30/15 [Last Taken Unknown] Mirtazapine [Remeron] 15 mg PO HS 08/30/15 [Last Taken 06/07/17] Simvastatin 40 mg PO HS 08/30/15 [Last Taken 06/06/17] Sodium Chloride [Deep Sea] 2 ml NS PRN PRN 08/30/15 [Last Taken Unknown] Doxycycline Hyclate 100 mg PO DAILY 06/08/17 [Last Taken 06/07/17] Levothyroxine [Synthroid 125 mcg (*)] 125 mcg PO DAILY06 06/08/17 [Last Taken Unknown] Ondansetron Odt [Zofran Odt 4 mg (*)] 4 mg PO Q4 PRN 06/29/17 [Last Taken Unknown] traMADol [Ultram 50 mg (*)] 50 mg PO Q6 PRN 06/29/17 [Last Taken Unknown] - NPO status NPO Since - Liquids (Date): 07/05/17 NPO Since - Liquids (Time): 00:00 NPO Since - Solids (Date): 07/05/17 NPO Since - Solids (Time): 00:00 - Smoking Hx Smoking Status: Never smoked ANE Labs/Vital Signs - Labs Result Diagrams: 07/05/17 07:45 07/03/17 03:24 - Vital Signs Blood Pressure: 84/60 Heart Rate: 79 Respiratory Rate: 22 O2 Sat (%): 99 Height: 152.4 cm Weight: 96.8 kg ANE Physical Exam - Airway Neck exam: decreased ROM, short neck Mallampati Score: Class 2 Mouth exam: poor dentition, dentures - Pulmonary Pulmonary: reduced air movement, expiratory wheeze - Cardiovascular Cardiovascular: irregularly irregular - ASA Status ASA Status: IV ANE Anesthesia Plan Anesthesia Plan: MAC
--- NOTE | 2017-07-05 14:56 | POSTANESTH ---
Post Anesthetic Evaluation Cardiovascular Status: Normal, Stable, Similar to Pre-Op Cond Respiratory Status: Normal, Stable, Similar to Pre-op Cond. Level of Consciousness/Mental Status: Can Participate in Eval Pain Control: Adequate, Prn Tx Ordered Nausea/Vomiting Control: Adequate, Prn Tx Ordered Complications Possibly Related to Anesthesia: None Noted
[2017-07-05 16:12] LABS: HEMATOCRIT 25.9 % (38.0-47.0); HEMOGLOBIN 9.1 g/dL (12.6-16.3)
[2017-07-05] MEDS: MIRTAZAPINE 15 MG TAB PO SCH (21:27)
[2017-07-05] MEDS: ATORVASTATIN CALCIUM 20 MG TAB PO SCH (21:27)
[2017-07-05 21:46] LABS: HEMATOCRIT 24.9 % (38.0-47.0); HEMOGLOBIN 8.6 g/dL (12.6-16.3)
--- NOTE | 2017-07-06 01:36 | GCON ---
[f rep st] CONSULTATION DATE OF CONSULTATION: 07/05/2017 REFERRING PHYSICIAN: Rosmery Figueroa MD REASON FOR CONSULTATION: GI bleed. CHIEF COMPLAINT: Blood in my stools HISTORY OF PRESENT ILLNESS: The patient is an 82-year-old female with a history of diastolic heart failure, CVA, COPD, pulmonary hypertension, peripheral vascular disease, atrial fibrillation, NSAID use who presented to [facility] on 06/29/2017 with increasing lower extremity edema as well as difficulty in ambulation consistent witha CHF exacerbation. She states that she was having symptoms for the last week and has had progressive problems ambulating as well as swelling in her lower extremities. Last night, she had several bowel movements which were very large and grossly bloody. She was noted to be hypotensive. She denies any exacerbating or alleviating factors to her bloody stools. She denies any abdominal pain, nausea, vomiting or chest pain. She did have complaints of shortness of breath. She is unsure if she has had a prior colonoscopic evaluation. I am being asked by Dr. Figueroa to evaluate Daxa in consultation regarding her blood in stools. PAST MEDICAL HISTORY: 1. Congestive heart failure. 2. Myocardial infarction with stents. 3. CVA. 4. Atrial fibrillation. 5. Pulmonary hypertension. 6. Peripheral vascular disease. 7. COPD with chronic O2. 8. Depression. PAST SURGICAL HISTORY: Cholecystectomy, partial thyroidectomy. MEDICATIONS: Aspirin, vitamin D, Remeron 15 mg at night, simvastatin 40 mg at night, Synthroid 125 mcg a day, Lasix 20 mg daily. ALLERGIES: Diclofenac, lisinopril, sulfa, warfarin, cephalexin. SOCIAL HISTORY: Lives at [facility]. No significant alcohol or tobacco use. FAMILY HISTORY: Positive for cancer. REVIEW OF SYSTEMS: A 14-point comprehensive Review of Systems was Performed. Pertinent positives and negatives per HPI. PHYSICAL EXAMINATION: VITALS: Blood pressure 80/58, respirations 20, temperature 37, Pulse 80. GENERAL: Awake, alert, oriented. HEENT: Mucosa moist. NECK: No JVD. CARDIOVASCULAR: Irregular rhythm. LUNGS: Decreased breath sounds. No rales or rhonchi appreciated. ABDOMEN: Soft, nontender, nondistended. Positive bowel sounds. No guarding. No rebound. EXTREMITIES: +3 pitting edema with chronic venous stasis. NEUROLOGIC: 2 through 12 appear grossly intact. PSYCH: Normal affect. SKIN: No rash. Nonicteric. Lymph: No lymphadenopathy LABORATORY DATA: Hemoglobin 7.7, hematocrit 23.0. Sodium 136, potassium 3.9, chloride 105, bicarb 24, BUN 21, creatinine 0.98. ASSESSMENT AND PLAN: 1. Gastrointestinal bleed- bloody bowel movements. She is on nonsteroidal anti -inflammatories and did have significant drop in hemoglobin with hypotension. Due to this, we will recommend to proceed with upper endoscopy to the rule out ulcer disease. Due to her congestive heart failure, chronic obstructive pulmonary disease, and pulmonary hypertension, she is at increased risk of sedation. Due to this, we will plan on Anesthesiology for support during the procedure. The risks, benefits, alternatives of the procedure were discussed in great detail with the patient. 2. History of congestive heart failure. 3. History of chronic obstructive pulmonary disease. 4. History of peripheral vascular disease. 5. History of depression. 6. History of pulmonary hypertension 7. History of Atrial fibrillation. 8. History of coronary artery disease. Thank you very much for this consultation. /[id number]/MODL MTDD
--- NOTE | 2017-07-06 04:59 | GCON ---
[f rep st] CONSULTATION PULMONARY CRITICAL CARE CONSULTATION DATE OF CONSULTATION: 07/05/2017 REASON FOR CONSULTATION: Intensive care unit evaluation and management of GI bleeding associated wit h hypotension and acute blood loss anemia. HISTORY: The patient is an 82-year-old, who was admitted to the hospital on 06/29. Her primary comp laint at that time was increasing lower extremity edema. This was felt to be secondary to heart fail ure, primarily diastolic. Lasix was increased. She does have a known history of heart disease and c hronic atrial fibrillation. She is a fall risk with multiple falls in the past, previous CVA, etc. She is thus not on full-dose anticoagulation as an outpatient. She was transferred to the intensive care unit secondary to GI bleeding early this morning. She had 2 large bloody bowel movements with clots. She has been seen by Gastroenterology. Upper endoscopy w as performed with negative findings. A colonoscopy is scheduled for tomorrow. The patient is currently stable. She has received 2 units of packed red blood cells. A followup hem oglobin and hematocrit post transfusion is pending. Prior to her bleed she was receiving both aspirin and prophylactic Lovenox. Both of these are curren tly on hold. She is on twice daily pantoprazole. 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 DRUG ALLERGIES: Acetaminophen, amoxicillin, cephalexin, diclofenac, lisinopril, warfarin, and sulfa preparations. SOCIAL HISTORY: She is in assisted living. After previous hospitalizations she required [facility]. Tobacco and alcohol are negative. FAMILY HISTORY: Noncontributory. REVIEW OF SYSTEMS: A 10-point review of systems is negative except as outlined above. The patient i s somewhat somnolent but can give some history. PHYSICAL EXAMINATION: GENERAL: Remarkable for an elderly woman who is lying comfortably in bed. Vikash león is somewhat sedated secondary to her previous endoscopy. VITAL SIGNS: Blood pressure is 117/72, h eart rate 88, with atrial fibrillation on the monitor. She is afebrile. Nasal cannula is in place a t 1 L. Saturations are in the high 80s. Respiratory rate is 16. HEENT: Unremarkable for lymphaden opathy or thyromegaly. She is somewhat pale. Mucous membranes are dry. There is no jugular venous distention. CHEST: Clear anteriorly. Breath sounds are diminished at the bases. There are no foca l findings. HEART: Irregular. A systolic murmur is present. P2 is not appear to be increased. Th ere is no obvious gallop. ABDOMEN: Soft and nontender. There is no organomegaly. Bowel sounds are present. EXTREMITIES: Remarkable for 1+ pitting edema. NEUROLOGIC: Nonfocal. DATABASE: Otherwise hematocrit from this morning was 23. Followup hematocrit is pending. No chemis tries were done today. Her last chemistries were within normal limits. ASSESSMENT: 1. Gastrointestinal bleed: Upper endoscopy is negative. Colonoscopy is pending. Presumably this w ill be a colonic source: Query possibly diverticular? Her bleed was associated with acute blood los s anemia. She has been transfused. Followup hemoglobin and hematocrit are stable. 2. Acute blood-loss anemia: Please see the comments above. 3. Hypotension: Secondary to #1. She has been resuscitated with fluids and with packed red blood c ells. Blood pressure has improved considerably. 4. History of atrial fibrillation, congestive heart failure with left ventricular as well as diastol ic dysfunction: She is on Lasix. 5. History of other medical problems as outlined above including failure to thrive, fall risk, etc. 6. Metabolic: No issues identified. 7. Gastrointestinal prophylaxis: On pantoprazole twice daily. 8. Deep vein thrombosis prophylaxis: Sequential compression devices. Anticoagulation is contraindi cated in light of her current ongoing bleed. PLAN AND RECOMMENDATIONS: The patient will be kept in the intensive care unit. Blood pressure will be followed. Hemoglobin and hematocrit will be followed. Further transfusions will be given as citlaly cated. Current medications will otherwise be continued. Laboratory will be followed in the a.m. Sh e will be kept n.p.o. for endoscopy tomorrow. Further plans and recommendations will be made based on her progress over the next 12-24 hours. /[id number]/MODL
[2017-07-06 05:51] LABS: ANION GAP 6 mEq/L (8-16); CARBON DIOXIDE 22 mEq/l (22-31); CHLORIDE 112 mEq/L (97-110); GLOMERULAR FILTRATION RATE 53; GLUCOSE 79 mg/dL (70-100); POTASSIUM 3.7 mEq/L (3.5-5.2); SODIUM 140 mEq/L (134-144)
[2017-07-06 05:57] LABS: HEMATOCRIT 23.8 % (38.0-47.0); HEMOGLOBIN 8.2 g/dL (12.6-16.3); MEAN CELL HEMOGLOBIN 30.9 pg (27.9-34.1); MEAN CELL HEMOGLOBIN CONCENTR. 34.5 g/dL (32.4-36.7); MEAN CELL VOLUME 89.8 fL (81.5-99.8); RED BLOOD CELL COUNT 2.65 10^6/uL (4.18-5.33); RED CELL DISTRIBUTION WIDTH 18.2 % (11.5-15.2)
[2017-07-06] MEDS: DOXYCYCLINE HYCLATE 100 MG CAP/TAB PO SCH (08:08)
[2017-07-06] MEDS: LEVOTHYROXINE 125 MCG TAB PO SCH (08:08)
[2017-07-06] MEDS: PANTOPRAZOLE SODIUM 40 MG VIAL IVP SCH (08:08)
[2017-07-06] MEDS: CHOLECALCIFEROL VIT D3 1,000 UNITS TAB PO SCH (08:08)
[2017-07-06] MEDS ORDERED: ALBUMIN 25% 200 ML IV ONE ×3 (08:53→17:54)
--- NOTE | 2017-07-06 09:10 | SOAPPROG ---
SOAP Progress Note Assessment/Plan: Assessment: 1. Melena with normal EGD; continued bleeding throughout the night(patient refusing Colyte prep). 2. Post-hemorrhagic anemia. 3. CHF Plan: 1. Rbc tagged bleeding scan today to r/o bleed above colon. 2. If bleeding persists will need to consider emergent mesenteric angiography. 3. Hopefully patient will agree to colon prep in the near future. 4. Check PT today and PLTS. Quang Rodriguez MD 07/06/17 09:14 Subjective: CC: Melena Interval HPI: Patient continues to have small BRB BM's throughout the night. She has refused to take colon prep. Objective: Vital Signs Temp Pulse Resp BP Pulse Ox 36.6 C 82 17 81/38 L 100 07/06/17 08:00 07/06/17 08:00 07/06/17 08:00 07/06/17 08:00 07/06/17 08:00 Laboratory Results 07/06/17 03:15 07/06/17 03:15 07/05/17 07/06/17 07/07/17 05:59 05:59 05:59 Intake Total 1550 2481 Output Total 405 Balance 1550 2076 Laboratory Tests 07/05/17 07/05/17 07/05/17 07:45 16:05 21:40 Hgb 7.7 L 9.1 L 8.6 L 07/06/17 03:15 Hgb 8.2 L Physical Exam - Physical Exam General Appearance: no apparent distress Respiratory: lungs clear, normal breath sounds Cardiac/Chest: regular rate, rhythm Abdomen: normal bowel sounds, non-tender, soft Skin: normal color, warm/dry Neuro/Psych: alert, normal mood/affect, oriented x 3 ICD10 Worksheet Patient Problems: Problems Problem Status Onset CHF (congestive heart failure) Acute Cannot walk Acute Failure to thrive Acute Palliative care encounter Acute Peripheral edema Acute Acute renal failure Acute Cellulitis of right lower extremity Acute Diarrhea Acute Hypotension Acute Volume depletion Acute MRSA (methicillin resistant Staphylococcus aureus) Chronic 08/13/15
[2017-07-06 09:55] LABS: INR 1.3 (0.83-1.16); PROTIME(PATIENT) 16.4 SEC (12.0-15.0)
--- NOTE | 2017-07-06 10:21 | HOSPPROG ---
Hospitalist Progress Note Assessment/Plan: DIAGNOSES: #Acute blood loss anemia, uncertain location and lesion: 1 U packed red blood cells transfused so far -still having ongoing bleeding with large bloody stools overnight -EGD showed no lesions; some erythematous mucosa in gastric body/antrum that was biopsied -colonoscopy today is scheduled though patient has not tolerated prep so far #Hypotension: Persist with significant hypotension today -requires further resuscitation at this time #Chronic LE edema: -holding Lasix -she is declining complete stockings and leg elevation at this time #Permanent AF: rate-controlled -beta-joe for rate control -her chronic aspirin therapy is currently held for bleeding reasons; will need indefinite aggressive acid lowering therapies in order to safely be able to continue stroke prevention measures #Chronic systolic (EF 43%) and diastolic HF: LE edema, no pulm edema -diuretics held due to hypotension #Deconditioning: h/o falls. -very high fall risk here in the hospital - PT/OT. Referral for SNF pending #Right buttock pressure injury: present on admission. -Wound care nurses are managing #hypothyroidism: LT4 #NSVT: one episode. Lytes at goal. #hx of MRSA infection: chronic immunosupression with Doxy #Depression: Remeron PLANS: -continue twice daily proton pump inhibitor -I have ordered albumin iv resuscitation now and she may need further transfusion and albumin today for hypotension will follow closely -I have asked the nurse to contact Dr. Valdes and review the fact patient was unable tolerate colon prep so that for the plans could be made, she may be able to use let other laxative and enemas -continue follow blood counts closely -I will review the colonoscopy findings with Dr. Valdes when they are done today -continue care in ICU at this time The patient is high risk for complications giving her ongoing bleeding, heart disease, fall risk and skin issues SUBJECTIVE: She feels overall terrible malaise, no abdominal pain, still having bloody stools No fever symptoms line no chest pain or shortness of breath OBJECTIVE Vitals reviewed: Remains fairly hypotensive, though heart rate in good range and afebrile Medicine And Health Service Manager, my review: Sinus Exam: alert oriented looks quite uncomfortable and fatigued skin warm dry color ok resps not labored lungs clear BSs heart regular abd soft nondistended nontender, bowel sounds present limbs warm, no edema iv site ok Laboratory data reviewed: Hemoglobin stable at 8.2 Electrolytes and creatinine stable INR mildly elevated at 1.3, possibly due to serum protein losses Objective: Vital Signs Temp Pulse Resp BP Pulse Ox 36.6 C 82 17 81/38 L 100 07/06/17 08:00 07/06/17 08:00 07/06/17 08:00 07/06/17 08:00 07/06/17 08:00 Laboratory Results 07/06/17 09:35 07/06/17 03:15 07/05/17 07/06/17 07/07/17 06:59 06:59 06:59 Intake Total 1550 2481 Output Total 405 Balance 1550 2076 PT 16.4 SEC (12.0-15.0) H 07/06/17 09:35 INR 1.30 (0.83-1.16) H 07/06/17 09:35 - Time Spent With Patient Time Spent with Patient: greater than 35 minutes Time Spent with Patient: Greater than 35 minutes spent on this patients care, greater than 50% of time spent counseling, educating, and coordinating care regarding the above mentioned plan. ICD10 Worksheet Patient Problems: Problems Problem Status Onset CHF (congestive heart failure) Acute Cannot walk Acute Failure to thrive Acute Palliative care encounter Acute Peripheral edema Acute Acute renal failure Acute Cellulitis of right lower extremity Acute Diarrhea Acute Hypotension Acute Volume depletion Acute MRSA (methicillin resistant Staphylococcus aureus) Chronic 08/13/15
--- NOTE | 2017-07-06 12:40 | PDINTPN ---
Air Analysis Engineering Technician Progress Note Assessment/Plan: Assessment: Acute GI bleed. Upper endoscopy negative. Colonoscopy currently put on hold because she was unable to do prep. A tagged red blood cell scan has been ordered as she has evidence of probable ongoing bleeding. Acute blood-loss anemia. Status post 2 U of blood yesterday. Hematocrit drifting down today, 23.8 this a.m.. Follow-up values pending. Hypotension: Blood pressure is borderline this morning. Getting albumin currently. History of congestive heart failure, diastolic dysfunction: Stable. History of other medical problems as outlined in her records: Stable. Metabolic: No acute issues identified. On potassium replacement. DVT prophylaxis: SCDs Plan: Serial hematocrits will be checked every 6-8 hours for now. Blood will be given again if needed. A tagged red blood cell scan will be performed. GI will continue to follow. The patient will be kept NPO. Colonoscopy will be readdressed for tomorrow. Chemistries will be followed. Anti-platelet agents and anticoagulation will continue to be held. 25 min of critical care time was spent directly with the patient. Discussed with nursing and the ICU multi disciplinary team. Subjective: Doing okay, lying in bed. Weak. Denies pain. Objective: Vital Signs Temp Pulse Resp BP Pulse Ox 36.6 C 84 18 111/91 H 100 07/06/17 08:00 07/06/17 11:45 07/06/17 11:45 07/06/17 11:45 07/06/17 11:45 Laboratory Results 07/06/17 09:35 07/06/17 03:15 07/05/17 07/06/17 07/07/17 05:59 05:59 05:59 Intake Total 1550 2481 360 Output Total 405 Balance 1550 2076 360 PT 16.4 SEC (12.0-15.0) H 07/06/17 09:35 INR 1.30 (0.83-1.16) H 07/06/17 09:35 Laboratory Tests 07/06/17 03:15 Calcium 8.0 L Laboratory Tests 07/06/17 03:15 WBC 9.98 H Hgb 8.2 L Hct 23.8 L Physical Exam - Physical Exam General Appearance: no apparent distress, thin, other (Pale appearing) EENT: PERRL/EOMI, pale conjunctiva (R), pale conjunctiva (L), other (Nasal cannula at 1 L) Neck: normal inspection (No obvious jugular venous distension), No thyromegaly Respiratory: lungs clear (Anteriorly), decreased breath sounds (At bases), No rales, No rhonchi Cardiac/Chest: systolic murmur, irregularly irregular Abdomen: normal bowel sounds, non-tender, soft, other (Had several bloody bowel movements overnight) Pelvic Exam: other (No Link catheter) Skin: warm/dry, pallor Lymphatic: no adenopathy Extremities: No pedal edema Neuro/Psych: no motor/sensory deficits (Globally weak), No cognition abnormalities ICD10 Worksheet Patient Problems: Problems Problem Status Onset MRSA (methicillin resistant Staphylococcus aureus) Chronic 08/13/15 Cellulitis of right lower extremity Acute Diarrhea Acute Hypotension Acute Volume depletion Acute Acute renal failure Acute Peripheral edema Acute CHF (congestive heart failure) Acute Cannot walk Acute Failure to thrive Acute Palliative care encounter Acute
[2017-07-06 14:38] LABS: HEMATOCRIT 18.9 % (38.0-47.0)
[2017-07-06 14:39] LABS: HEMOGLOBIN 6.6 g/dL (12.6-16.3)
--- NOTE | 2017-07-06 15:45 | SOAPPROG ---
SOAP Progress Note Assessment/Plan: Assessment:Plan: radiology called me with positive tagged RBC scan likely transverse colon if continues to bleed may require IR angiogram and embolization spke to RN on floor 07/06/17 17:21 07/06/17 18:38 Objective: Vital Signs Temp Pulse Resp BP Pulse Ox 36.6 C 89 26 H 92/56 L 96 07/06/17 08:00 07/06/17 14:18 07/06/17 14:18 07/06/17 14:18 07/06/17 14:18 Laboratory Results 07/06/17 14:30 07/06/17 03:15 07/05/17 07/06/17 07/07/17 05:59 05:59 05:59 Intake Total 1550 2481 360 Output Total 405 Balance 1550 2076 360 PT 16.4 SEC (12.0-15.0) H 07/06/17 09:35 INR 1.30 (0.83-1.16) H 07/06/17 09:35 ICD10 Worksheet Patient Problems: Problems Problem Status Onset CHF (congestive heart failure) Acute Cannot walk Acute Failure to thrive Acute Palliative care encounter Acute Peripheral edema Acute Acute renal failure Acute Cellulitis of right lower extremity Acute Diarrhea Acute Hypotension Acute Volume depletion Acute MRSA (methicillin resistant Staphylococcus aureus) Chronic 08/13/15
--- NOTE | 2017-07-06 16:44 | WOCRNPDOC ---
WOCRN Advanced Assessment Note - Skin Integrity Problem, Advanced Assess Gluteal Cleft Dermatitis Dressing Type: Open to Air Exudate Amount: None Exudate Characteristic(s): None Integumentary Issue Intervention: Barrier Cream Applied (dimethicone) Allie Wound Tissue: Blanching Allie Wound Swelling: None Skin Integrity Problem Comment: Linear, friable skin in intergluteal cleft, consistent w/ intertriginous dermatitis. Surrounding skin is intact, blanching. Continue to apply moisture-barrier dimethicone cream BID. Right Medial Proximal Thigh Dressing Type: Open to Air Exudate Amount: None Exudate Characteristic(s): None Integumentary Issue Intervention: Lotion/Cream Applied (dimethicone) Allie Wound Tissue: Intact Allie Wound Swelling: None Wound Bed Color: Purple Pressure Injury Stage: Deep Tissue Injury (DTI) Pressure Injury Present on Admit: No Skin Integrity Problem Comment: Linear ecchymotic lesion on patient's R posterior upper thigh is resolving. Skin over the site remains intact, and surrounding skin is intact and blanching. Continue w/ dimethicone cream BID. Right Buttock Pressure Injury Dressing Type: Allevyn Life Dressing Description: Intact Exudate Amount: Scant Exudate Color: Reddish/Yellow Exudate Characteristic(s): Serosanguinous Integumentary Issue Intervention: Dressing Changed Allie Wound Tissue: Blanching, Intact Allie Wound Swelling: None Wound Bed Color: Red Wound Bed Constitution: Red/[place] - Non Granular Tissue Wound Edges: Epithelizing Site Odor: None Pressure Injury Stage: Stage 3 (now w/ appearance of partial-thickness wound) Pressure Injury Present on Admit: Yes Skin Integrity Problem Comment: Epithelializing wound noted on R buttock. Previously full-thickness in appearance, now partial-thickness w/ no necrosis observed. Will continue w/ Allevyn dressing and wound gel. Patient repositioned on her L side after wound care; continue w/ pressure-relieving interventions such as TAPS, turns q2, and reposition in chair q1. masking machine operatorBIANCA Hennessy present and assisting.
[2017-07-06] MEDS ORDERED: fentaNYL 100 MCG/2 ML INJ ONE (19:41)
[2017-07-06] MEDS ORDERED: NALOXONE HCL 0.4 MG/ML INJ IVP PRN (20:02)
[2017-07-06] MEDS ORDERED: fentaNYL 100 MCG/2 ML INJ IVP PRN (20:02)
[2017-07-06] MEDS ORDERED: FLUMAZENIL 0.5 MG/5 ML MDV IVP PRN (20:02)
[2017-07-06] MEDS ORDERED: MIDAZOLAM 2 MG/2 ML VIAL IVP PRN (20:02)
[2017-07-06] MEDS ORDERED: NS 1,000 ML IV SCH (20:15)
[2017-07-06] MEDS ORDERED: IOPAMIDOL (ISOVUE-300) 100 ML BTL ONE ×2 (21:02→21:36)
--- NOTE | 2017-07-06 21:29 | PDRADPN ---
Radiology Procedure Note Date of Procedure: 07/06/17 Radiologist: Jackeline Potter Anesthesia: IV Sedation (fentanyl) Pre-op Diagnosis: GIB Post-op Diagnosis: GIB Indication: decreasing HCT Procedure: Viseral angiogram Finding(s): No active extravesation in SMA and KYLIE distribution. Very hyperremic sigmoid colon with lots of mucosal blush, concordant with the mild uptake on GIB Nucs scan at sigmoid colon at mid pelvis that is stationary. No embolization done. Would recommend correlation with colonoscopy when possible to look at the mucosa. Inf/Abcess present in the surg proc area at time of surgery?: No Complications: None
[2017-07-06 22:08] LABS: HEMATOCRIT 27.2 % (38.0-47.0); HEMOGLOBIN 9.2 g/dL (12.6-16.3)
[2017-07-06] MEDS: ATORVASTATIN CALCIUM 20 MG TAB PO SCH (23:20)
[2017-07-06] MEDS: MIRTAZAPINE 15 MG TAB PO SCH (23:24)
[2017-07-07] MEDS: PANTOPRAZOLE SODIUM 40 MG VIAL IVP SCH ×2 (01:03→08:35)
[2017-07-07 03:50] LABS: % IMMATURE GRANULYOCYTES 0.8 % (0.0-1.1); ABSOLUTE IMMATURE GRANULOCYTES 0.08 10^3/uL (0.00-0.10); ADD DIFF? NO; ADD MORPH? NO; ADD SCAN? NO; ATYPICAL LYMPHOCYTE FLAG 0 (0-99); FRAGMENT RBC FLAG 20 (0-99); HEMATOCRIT 28.3 % (38.0-47.0); HEMOGLOBIN 9.7 g/dL (12.6-16.3); LEFT SHIFT FLG 0 (0-99); LIPEMIA HEMOLYSIS FLAG 90 (0-99); MEAN CELL HEMOGLOBIN 30.1 pg (27.9-34.1); MEAN CELL HEMOGLOBIN CONCENTR. 34.3 g/dL (32.4-36.7); MEAN CELL VOLUME 87.9 fL (81.5-99.8); MEAN PLATELET VOLUME 11.5 fL (8.7-11.7); PLATELET CLUMPS FLAG 10 (0-99); PLATELET COUNT 120 10^3/uL (150-400); RED BLOOD CELL COUNT 3.22 10^6/uL (4.18-5.33); RED CELL DISTRIBUTION WIDTH 19.7 % (11.5-15.2)
[2017-07-07 04:39] LABS: BILIRUBIN-CONJUGATED 0.9 mg/dL (0.0-0.5); BILIRUBIN-UNCONJUGATED 1.6 mg/dL (0.0-1.1)
[2017-07-07] MEDS: LEVOTHYROXINE 125 MCG TAB PO SCH (05:34)
[2017-07-07 06:54] LABS: ALANINE AMINOTRANSFERASE 39 IU/L (9-52); ALKALINE PHOSPHATASE 43 IU/L (38-126); ANION GAP 10 mEq/L (8-16); ASPARTATE AMINOTRANSFERASE 21 IU/L (14-46); BILIRUBIN,TOTAL 2.5 mg/dL (0.1-1.4); CALCIUM 9.3 mg/dL (8.5-10.4); CARBON DIOXIDE 22 mEq/l (22-31); CHLORIDE 109 mEq/L (97-110); GLOMERULAR FILTRATION RATE 53; GLUCOSE 88 mg/dL (70-100); POTASSIUM 3.7 mEq/L (3.5-5.2); SODIUM 141 mEq/L (134-144); TOTAL PROTEIN 4.8 g/dL (6.3-8.2)
[2017-07-07] MEDS: CHOLECALCIFEROL VIT D3 1,000 UNITS TAB PO SCH (08:35)
[2017-07-07] MEDS: DOXYCYCLINE HYCLATE 100 MG CAP/TAB PO SCH (08:35)
--- NOTE | 2017-07-07 09:20 | SOAPPROG ---
SOAP Progress Note Assessment/Plan: Assessment: 1. Melena with normal EGD and + bleeding scan in mid to left colon albeit negative visceral angiography yesterday; minimal dark blood per rectum this am. 2. Post-hemorrhagic anemia; S/P transfusion of prbc. 3. CHF; chronic. Plan: 1. Clears PO. 2. One bottle of Mag Citrate today, will attempt to prep with multiple bottles if patient tolerates. 3. Colonoscopy when prepped. Quang Rodriguez MD 07/07/17 09:16 Subjective: CC: GI Bleed. Interval HPI: Events of yesterday afternoon noted. Patient with one small dark black BM this am. Objective: Vital Signs Temp Pulse Resp BP Pulse Ox 36.3 C 78 19 90/60 L 96 07/07/17 07:44 07/07/17 07:44 07/07/17 07:44 07/07/17 07:44 07/07/17 07:44 Laboratory Results 07/07/17 03:40 07/07/17 03:40 07/06/17 07/07/17 07/08/17 05:59 05:59 05:59 Intake Total 2831 1210 Output Total 405 Balance 2426 1210 PT 16.4 SEC (12.0-15.0) H 07/06/17 09:35 INR 1.30 (0.83-1.16) H 07/06/17 09:35 Physical Exam - Physical Exam General Appearance: alert, no apparent distress Respiratory: lungs clear, normal breath sounds Cardiac/Chest: regular rate, rhythm Abdomen: normal bowel sounds, non-tender, soft Skin: normal color, warm/dry Neuro/Psych: alert, normal mood/affect, oriented x 3 ICD10 Worksheet Patient Problems: Problems Problem Status Onset CHF (congestive heart failure) Acute Cannot walk Acute Failure to thrive Acute Palliative care encounter Acute Peripheral edema Acute Acute renal failure Acute Cellulitis of right lower extremity Acute Diarrhea Acute Hypotension Acute Volume depletion Acute MRSA (methicillin resistant Staphylococcus aureus) Chronic 08/13/15
[2017-07-07] MEDS ORDERED: MAGNESIUM CITRATE 300 ML BOTTLE PO ONE (09:22)
--- NOTE | 2017-07-07 12:18 | ASMTCMCOM ---
CM Note CM Note Notes: Aydee from [facility] called stating she had talked to a nurse who told her patient was d/c'ing soon and would be returning to [facility]. Aydee was concerned because they do not have any medical support services at [facility]. Clarifed with Aydee , patient had to return to the ICU as a result of some complications and would not be ready for d/c for another 2-3 days. The d/c plan is for patient to go to SNF rehab. Her first choice , [facility] has denied patient due to insurance limitations. We will continue to locate another facility that she is willing to go to. Patient is scheduled to return to the floor today. CM will follow. Date Signed: 07/07/2017 12:18 PM Electronically Signed By:Enriqueta Guido LCSW
--- NOTE | 2017-07-07 18:37 | HOSPPROG ---
Hospitalist Progress Note Assessment/Plan: DIAGNOSES: #Acute blood loss anemia, uncertain location and lesion: 2 U packed red blood cells transfused so far -eating appears to have slowed down and hemoglobin stabilized -EGD showed no lesions; some erythematous mucosa in gastric body/antrum that was biopsied -bleeding scan with a positive bleeding site in the bowel, angiography with an area of blush but no focal bleeding site amenable to embolization #Hypotension: Somewhat better today though blood pressure still on the low side for her -as she is developing some signs of volume overload and her renal function and mentation are good would hold off on further fluids and less becomes truly necessary # volume overload apparent with very mild pulmonary edema and slight increase of her Chronic LE edema: -holding Lasix at present due to hypotension, -she is declining complete stockings and leg elevation at this time #Permanent AF: rate-controlled -beta-joe for rate control -her chronic aspirin therapy is currently held for bleeding reasons; will need indefinite aggressive acid lowering therapies in order to safely be able to continue stroke prevention measures #Chronic systolic (EF 43%) and diastolic HF: LE edema, no pulm edema -diuretics held due to hypotension #Deconditioning: h/o falls. -very high fall risk here in the hospital - PT/OT. Referral for SNF pending #Right buttock pressure injury: present on admission. -Wound care nurses are managing #hypothyroidism: LT4 #NSVT: one episode. Lytes at goal. #hx of MRSA infection: chronic immunosupression with Doxy #Depression: Remeron PLANS: -continue twice daily proton pump inhibitor -will need to watch her fluid status carefully and can consider giving more fluids or diuresis depending on how she is doing -continue follow blood counts closely -per colonoscopy ordered, hopefully we can proceed to getting that procedure done of the next day or 2, may need to push harder if she has more bleeding or instability -follow renal function closely -fall risk precautions -holding aspirin therapy and no anticoagulants at this time due to bleeding The patient is high risk for complications giving her ongoing bleeding, heart disease, fall risk and skin issues SUBJECTIVE: Patient still feels very weak and tired, no shortness of breath, no fever symptoms No abdominal pain nausea vomiting and no bleeding seen so far this morning OBJECTIVE Vitals reviewed: Remains fairly hypotensive, though heart rate in good range and afebrile Learning Designer, my review: Sinus Exam: Awake but somewhat lethargic, oriented looks bit less uncomfortable today skin warm dry color ok resps not labored but her respiratory rate has been faster so far today lungs clear BSs heart regular abd soft nondistended nontender, bowel sounds present limbs warm, some mild pitting edema of both legs has developed iv site ok Laboratory data reviewed: Hemoglobin up to 9.7 after 2 U transfusion, stable electrolytes and renal function INR mildly elevated at 1.3, possibly due to serum protein losses I reviewed her angiography images with Dr. Marisa Potter. There is a little bit of mucosal blush but no evidence of a specific but focal bleeding site that could be treated by embolization. I reviewed the chest x-ray findings from today, there is mild pulmonary edema and some enlargement of the heart Objective: Vital Signs Temp Pulse Resp BP Pulse Ox 36.6 C 80 23 H 97/65 L 100 07/07/17 15:28 07/07/17 15:28 07/07/17 15:28 07/07/17 15:28 07/07/17 15:28 Laboratory Results 07/07/17 03:40 07/07/17 03:40 07/06/17 07/07/17 07/08/17 06:59 06:59 06:59 Intake Total 2831 1210 800 Output Total 405 Balance 2426 1210 800 PT 16.4 SEC (12.0-15.0) H 07/06/17 09:35 INR 1.30 (0.83-1.16) H 07/06/17 09:35 ICD10 Worksheet Patient Problems: Problems Problem Status Onset CHF (congestive heart failure) Acute Cannot walk Acute Failure to thrive Acute Palliative care encounter Acute Peripheral edema Acute Acute renal failure Acute Cellulitis of right lower extremity Acute Diarrhea Acute Hypotension Acute Volume depletion Acute MRSA (methicillin resistant Staphylococcus aureus) Chronic 08/13/15
[2017-07-08] MEDS: MIRTAZAPINE 15 MG TAB PO SCH ×2 (00:36→19:58)
[2017-07-08] MEDS: ATORVASTATIN CALCIUM 20 MG TAB PO SCH ×2 (00:37→19:58)
[2017-07-08 04:53] LABS: % IMMATURE GRANULYOCYTES 0.7 % (0.0-1.1); ABSOLUTE IMMATURE GRANULOCYTES 0.07 10^3/uL (0.00-0.10); ABSOLUTE NRBC COUNT 0.02 10^3/uL (0-0.01); ADD DIFF? NO; ADD MORPH? NO; ADD SCAN? NO; ATYPICAL LYMPHOCYTE FLAG 0 (0-99); FRAGMENT RBC FLAG 20 (0-99); HEMATOCRIT 29.1 % (38.0-47.0); HEMOGLOBIN 9.5 g/dL (12.6-16.3); LEFT SHIFT FLG 0 (0-99); LIPEMIA HEMOLYSIS FLAG 80 (0-99); MEAN CELL HEMOGLOBIN 29.5 pg (27.9-34.1); MEAN CELL HEMOGLOBIN CONCENTR. 32.6 g/dL (32.4-36.7); MEAN CELL VOLUME 90.4 fL (81.5-99.8); MEAN PLATELET VOLUME 12.5 fL (8.7-11.7); NRBC-AUTO% 0.2 % (0.0-0.2); PLATELET CLUMPS FLAG 10 (0-99); PLATELET COUNT 122 10^3/uL (150-400); RED BLOOD CELL COUNT 3.22 10^6/uL (4.18-5.33); RED CELL DISTRIBUTION WIDTH 19.9 % (11.5-15.2)
[2017-07-08 05:10] LABS: ANION GAP 11 mEq/L (8-16); CALCIUM 9.7 mg/dL (8.5-10.4); CARBON DIOXIDE 24 mEq/l (22-31); CHLORIDE 108 mEq/L (97-110); CREATININE 0.9 mg/dL (0.6-1.0); GLOMERULAR FILTRATION RATE 60; GLUCOSE 80 mg/dL (70-100); POTASSIUM 3.5 mEq/L (3.5-5.2); SODIUM 143 mEq/L (134-144)
[2017-07-08] MEDS: LEVOTHYROXINE 125 MCG TAB PO SCH (06:46)
[2017-07-08] MEDS: CHOLECALCIFEROL VIT D3 1,000 UNITS TAB PO SCH (08:57)
[2017-07-08] MEDS: DOXYCYCLINE HYCLATE 100 MG CAP/TAB PO SCH (08:58)
[2017-07-08] MEDS: PANTOPRAZOLE SODIUM 40 MG TAB PO SCH (08:58)
--- NOTE | 2017-07-08 11:58 | SOAPPROG ---
SOAP Progress Note Assessment/Plan: Assessment: 1. Melena with normal EGD and + bleeding scan in mid to left colon albeit negative visceral angiography yesterday; No further blood in stolol and patient doesn't want colonoscopy at this time. 2. Post-hemorrhagic anemia; S/P transfusion of prbc; stable. 3. CHF; chronic. Plan: 1. MAINE 2. Hospitalist to discuss with family whether then want to proceed with further evaluation. Please call me if patient or family decide to have further evaluation of colon. Quang Rodriguez MD 07/08/17 11:59 Subjective: CC: Lower GI bleed; resolved. Interval HPI: Patient has had no further GI bleedin in 24 hours. She does not want to undergo colonoscopy. Objective: Vital Signs Temp Pulse Resp BP Pulse Ox 36.3 C 86 17 98/68 L 97 07/08/17 07:46 07/08/17 07:46 07/08/17 07:46 07/08/17 07:46 07/08/17 07:46 Laboratory Results 07/08/17 04:40 07/08/17 04:40 07/07/17 07/08/17 07/09/17 05:59 05:59 05:59 Intake Total 1210 1000 Balance 1210 1000 PT 16.4 SEC (12.0-15.0) H 07/06/17 09:35 INR 1.30 (0.83-1.16) H 07/06/17 09:35 Physical Exam - Physical Exam General Appearance: WD/WN, alert, no apparent distress Respiratory: lungs clear, normal breath sounds Cardiac/Chest: regular rate, rhythm Abdomen: normal bowel sounds, non-tender, soft Skin: normal color Neuro/Psych: alert, normal mood/affect, oriented x 3 ICD10 Worksheet Patient Problems: Problems Problem Status Onset CHF (congestive heart failure) Acute Cannot walk Acute Failure to thrive Acute Palliative care encounter Acute Peripheral edema Acute Acute renal failure Acute Cellulitis of right lower extremity Acute Diarrhea Acute Hypotension Acute Volume depletion Acute MRSA (methicillin resistant Staphylococcus aureus) Chronic 08/13/15
--- NOTE | 2017-07-08 13:01 | HOSPPROG ---
Hospitalist Progress Note Assessment/Plan: DIAGNOSES: #Acute lower GI bleed with blood loss anemia, location sigmoid colon, uncertain lesion: 2 U packed red blood cells transfused so far -bleeding appears resolved at this time -EGD showed no lesions; some erythematous mucosa in gastric body/antrum that was biopsied -bleeding scan with a positive bleeding site in the bowel, angiography with an area of blush in the sigmoid colon but no focal bleeding site amenable to embolization #Hypotension: Improving -as she is developing some signs of volume overload and her renal function and mentation are good would hold off on further fluids and less becomes truly necessary # volume overload, mild due to resuscitation fluids and red cells -holding Lasix at present due to hypotension, can probably resume that within a day or 2 of all stable -she is declining complete stockings and leg elevation at this time #Permanent AF: rate-controlled chronic -beta-joe for rate control -her chronic aspirin therapy is currently held for bleeding reasons; will need indefinite aggressive acid lowering therapies in order to safely be able to continue aspirin for stroke prevention measures #Chronic systolic (EF 43%) and diastolic HF, chronic LE edema -as above some volume overload due to resuscitation here but hard appears stable #Deconditioning: h/o falls. -very high fall risk here in the hospital - PT/OT. Referral for SNF pending #Right buttock pressure injury: present on admission. -Wound care nurses are managing, uncomplicated #hypothyroidism: LT4 #NSVT: one episode. Lytes at goal. #hx of MRSA infection: chronic immunosupression with Doxycycline #Depression: Remeron PLANS: -continue twice daily proton pump inhibitor -likely resume Lasix 1-2 days if stable -continue follow blood counts closely -our plan had been to proceed with colonoscopy for further assessment of bleeding lesion, and she did take some laxative for that yesterday. Today she is told Dr. thompson brand she is not interested in colonoscopy at this time. Will continue to discuss with this with her moving forward. There is certainly risk of either a malignancy, or an AVM which could rebleed on her chronic aspirin therapy for AFib. -fall risk precautions -holding aspirin therapy and no anticoagulants at this time due to bleeding -physical occupational therapy evaluations I reviewed the case in detail today with Dr. Quang Rodriguez Disposition: Will likely need long-term facility rehab but further assessment as we try to mobilize her more at this time SUBJECTIVE: Feels little better overall this morning, more awake and is hungry No abdominal pain has noticed no new bleeding Has not been up on her feet today OBJECTIVE Vitals reviewed: Blood pressures are notably and improved though still little bit on the low side, otherwise stable vitals with no fever Exam: Today is more awake and interactive, looks more comfortable skin warm dry color ok resps not labored lungs clear BSs heart regular abd soft nondistended nontender, bowel sounds present limbs warm, some mild pitting edema of both legs has developed but is less today than yesterday iv site ok Laboratory data reviewed: Hemoglobin stable at 9+ after 2 U transfusion, stable electrolytes and renal function Objective: Vital Signs Temp Pulse Resp BP Pulse Ox 36.4 C 77 18 99/62 L 96 07/08/17 12:02 07/08/17 12:02 07/08/17 12:02 07/08/17 12:02 07/08/17 12:02 Laboratory Results 07/08/17 04:40 07/08/17 04:40 07/07/17 07/08/17 07/09/17 06:59 06:59 06:59 Intake Total 1210 1000 Balance 1210 1000 PT 16.4 SEC (12.0-15.0) H 07/06/17 09:35 INR 1.30 (0.83-1.16) H 07/06/17 09:35 - Time Spent With Patient Time Spent with Patient: greater than 35 minutes Time Spent with Patient: Greater than 35 minutes spent on this patients care, greater than 50% of time spent counseling, educating, and coordinating care regarding the above mentioned plan. ICD10 Worksheet Patient Problems: Problems Problem Status Onset CHF (congestive heart failure) Acute Cannot walk Acute Failure to thrive Acute Palliative care encounter Acute Peripheral edema Acute Acute renal failure Acute Cellulitis of right lower extremity Acute Diarrhea Acute Hypotension Acute Volume depletion Acute MRSA (methicillin resistant Staphylococcus aureus) Chronic 08/13/15
--- NOTE | 2017-07-08 16:32 | ASMTCMCOM ---
CM Note CM Note Notes: Pt transferred to yesterday. PT/OT recommending SNF but pt only has 5 days left that insurance will cover and then she will need to pay $165/day. Attempted to discuss with pt but she was angry and not interested in discussing it. Spoke with son Olaf in [place]. Olaf states that there is no money for pt's co-pay. However, he thought she had LTC Medicaid but did not know for sure. He would approve of pt going to a SNF for her 5 more days and then going to a LTC mcaid bed until she was ready to return to [facility]. Spoke with Aydee at ([phone]) who confirmed that pt does have LTC mcaid. She also stated that Pt has been depressed and agry at and "doesn't seem to want to carry on." Called [facility] where pt had 15 days of rehab in May. Sachin stated they would take her back and do the paperwork to get her approved to move into a LTC bed there. Will call on back tomorrow and discuss rehab options with him. CM will continue to follow. Date Signed: 07/08/2017 04:31 PM Electronically Signed By:Yovana Albright LCSW
[2017-07-09] MEDS: LEVOTHYROXINE 125 MCG TAB PO SCH (04:38)
[2017-07-09] MEDS: CHOLECALCIFEROL VIT D3 1,000 UNITS TAB PO SCH (10:05)
[2017-07-09] MEDS: DOXYCYCLINE HYCLATE 100 MG CAP/TAB PO SCH (10:05)
[2017-07-09] MEDS: PANTOPRAZOLE SODIUM 40 MG TAB PO SCH (10:05)
--- NOTE | 2017-07-09 10:20 | WOCRNPDOC ---
WOCRN Advanced Assessment Note - Skin Integrity Problem, Advanced Assess Gluteal Cleft Dermatitis Dressing Type: Open to Air Exudate Amount: None Exudate Characteristic(s): None Integumentary Issue Intervention: Lotion/Cream Applied (dimethicone) Allie Wound Tissue: Blanching, Intact Skin Integrity Problem Comment: Dimethicone cream working well for moisture- associated dermatitis is gluteal cleft. Skin is intact and blanching. Nursing should continue w/ BID and PRN pericare application. Patient remains on TAPS system and turns q2. Right Medial Proximal Thigh Dressing Type: Open to Air Exudate Amount: None Exudate Characteristic(s): None Integumentary Issue Intervention: Lotion/Cream Applied (dimethcone cream) Allie Wound Tissue: Intact Wound Bed Color: Purple Pressure Injury Stage: Deep Tissue Injury (DTI) Pressure Injury Present on Admit: No Skin Integrity Problem Comment: Skin continues to be intact over linear area of ecchymosis on patient's R upper posterior thigh. Uncertain of etiology; initially documented as a possible deep tissue injury, but there has been no change to this site since it was first assessed on 07/02. Will continue to have nursing turn patient q2 hours using TAPS, and apply dimethicone cream to area. Wound care will re-assess in 1 week on 07/16. Left Buttock Dressing Type: Open to Air Exudate Amount: None Exudate Characteristic(s): None Integumentary Issue Intervention: Barrier Cream Applied (Calazime) Allie Wound Tissue: Blanching, Intact Allie Wound Swelling: None Wound Bed Color: Hannah Wound Edges: Epithelizing Pressure Injury Stage: Stage 3 Pressure Injury Present on Admit: Yes Skin Integrity Problem Comment: Previously documented as a stage 3 pressure injury, this site is now fully epithelialized, blanching throughout. Periwound skin is also intact and blanching. Will continue to maintain pressure-relieving interventions to avoid re-injuring site. stevedore hold Rekha joshua, was able to visualize site during assessment.
--- NOTE | 2017-07-09 14:23 | PDPCPN ---
Palliative Care Progress Note Assessment/Plan: HPI: Daxa Sharif (Jean) is a 82 yo female with PMH CHF, chronic LE edema, and a fib admitted to the hospital with lower leg edema. Recent hospitalization for diarrhea where her lasix was reduced due to hypotension and ELBA. Here restarted on lasix dose with medical management of chronic LE edema. She has a history of frequent falling with no injuries noted. Hospitalization complicated by asymptomatic NSVT. She has made statements including " just let me ". Palliative care consulted for complex medical decision making. Met with Demetrius this afternoon. She was tired but easily awoken. She discussed she does not like having as much control over her daily activities (deciding when to get up, what activities to do, etc). She does not like rehab because of this same issue. She would prefer to be back at [facility] where she has more control over her life. Being as independent as possible is very important for her quality of life. We discussed if she remained at her current level of functional status "what would be the point of living". When asked if she was able to improve when she want to? she stated yes she would want the chance. We discussed she is unable to go back to [facility] at present and plan is for rehab at discharge. She could not remember which rehab was the one she did not like in the past but overall is not excited about going to rehab but understands it is the necessary next step. She denied any depression just frustration with not being independent again. Assessment: Physical: - Pain: appears comfortable -tylenol PRN - weakness/falls: - PT/OT - agreeable to SNF/rehab Emotional/psychological: Doing ok. Has support from family if she needs it. Advanced Care Planning: Is patient decisional?: yes Code Status: DNR/DNI- confirmed MOST on file is correct with her wishes MD HARDEN: son Olaf is MDPOA. Plan: Demetrius is agreeable to rehab but prefers to go back to [facility] Ultimately her goal is to be at [facility] with a focus on quality of life. If she does not have a good quality of life she would not want to return back to the hospital or have life prolonging measures. Recommend having palliative care continue to follow Demetrius to help with quality of life. Subjective: I'm tired today Objective: Vital Signs Temp Pulse Resp BP Pulse Ox 36.4 C 76 20 100/62 96 07/09/17 11:33 07/09/17 11:33 07/09/17 11:33 07/09/17 11:33 07/09/17 11:33 Laboratory Results 07/08/17 04:40 07/08/17 04:40 07/08/17 07/09/17 07/10/17 05:59 05:59 05:59 Intake Total 1000 550 Balance 1000 550 PT 16.4 SEC (12.0-15.0) H 07/06/17 09:35 INR 1.30 (0.83-1.16) H 07/06/17 09:35 Physical Exam - Physical Exam General Appearance: alert, no apparent distress Respiratory: No respiratory distress, No accessory muscle use Skin: normal color, warm/dry Extremities: No pedal edema Neuro/Psych: alert, oriented x 3 ICD10 Worksheet Patient Problems: Problems Problem Status Onset CHF (congestive heart failure) Acute Cannot walk Acute Failure to thrive Acute Palliative care encounter Acute Peripheral edema Acute Acute renal failure Acute Cellulitis of right lower extremity Acute Diarrhea Acute Hypotension Acute Volume depletion Acute MRSA (methicillin resistant Staphylococcus aureus) Chronic 08/13/15 - ICD10 Problem Qualifiers (1) Palliative care encounter
--- NOTE | 2017-07-09 15:25 | ASMTCMCOM ---
CM Note CM Note Notes: [facility] met with pt today and agreed to take her. They discovered that her LTC medicaid had elasped 06/24 and they had pt sign a form that alows them to work with state to reinstate. Called son who is in agreement with plan. Pt does not want to go back to [facility] b/c she states sat in a chair all day. Shaye from [facility] states that pt is not remebering her therapies. Pt also thinks she is lying in bed at [facility] and told OT that even though she qworked with PT 3 hours earlier. Son, Olaf, will call pt and try to talk with her about SNF and [facility]. So far [facility] has refused pt and [facility] and [facility] are not good fits b/c they don't take LTC Medicaid. C/M to follow. Date Signed: 07/09/2017 03:25 PM Electronically Signed By:Yovana Albright LCSW
[2017-07-09] MEDS ORDERED: SODIUM CL NASAL 45 ML BTL NS PRN (19:04)
[2017-07-09] MEDS ORDERED: traMADol 50 MG TAB PO PRN (19:04)
[2017-07-09] MEDS ORDERED: MAGNESIUM HYDROXIDE 30 ML UDCUP PO PRN (19:04)
--- NOTE | 2017-07-09 19:10 | HOSPPROG ---
Hospitalist Progress Note Assessment/Plan: Assessment: 82 yo F p/w acute lower GI hemorrhage resulting in acute blood loss anemia, hypotension, ELBA Plan: #Acute lower GI bleed with acute blood loss anemia, location sigmoid colon, uncertain lesion: 2 U packed red blood cells transfused, EGD w/o lesions, bleeding scan positive in bowel w/ angiography blush in sigmoid - patient declined colonoscopy, GI signed off - PPI daily - monitor outpt Hgb level - patient received palliative care here, will have outpt pall care consultation given that she has expressed ideas consistent with Do Not Hospitalized, but she should have this decision revisited and confirmed in outpt setting # Hypotension: resolved, 2/2 above #Permanent AF: rate-controlled chronically, cont bblocker - holding ASA #Chronic systolic (EF 43%) and diastolic HF, chronic LE edema - restart home PO lasix #Deconditioning: h/o falls. Requiring SNF, patient declining the SNF for which she was authorized, case mgmt to continue working on patient's placement options - very high fall risk here in the hospital - PT/OT. Referral for SNF pending - counseled patient extensively regarding above #Right buttock pressure injury: present on admission. -Wound care nurses are managing, uncomplicated #hypothyroidism: LT4 #NSVT: one episode. Lytes at goal. #hx of MRSA infection: chronic immunosupression with Doxycycline #Depression: Remeron Diet. Regular PPx. On SCDs, hold pharm given bleed Code. DNR Dispo. ADD uncertain, pending safe placement. Subjective: patient does not want to go to SNF, denies pain Objective: Vital Signs Temp Pulse Resp BP Pulse Ox 36.8 C 82 18 94/82 H 94 07/09/17 16:12 07/09/17 16:12 07/09/17 16:12 07/09/17 16:12 07/09/17 16:12 Laboratory Results 07/08/17 04:40 07/08/17 04:40 07/08/17 07/09/17 07/10/17 05:59 05:59 05:59 Intake Total 1000 550 500 Balance 1000 550 500 PT 16.4 SEC (12.0-15.0) H 07/06/17 09:35 INR 1.30 (0.83-1.16) H 07/06/17 09:35 - Time Spent With Patient Time Spent with Patient: greater than 35 minutes Time Spent with Patient: Greater than 35 minutes spent on this patients care, greater than 50% of time spent counseling, educating, and coordinating care regarding the above mentioned plan. - Physical Exam Constitutional: chronically ill appearing, unkempt Cardiovascular: systolic murmur, edema (trace bilat LE), No tachycardia Respiratory: no respiratory distress, no rales or rhonchi, clear to auscultation Gastrointestinal: normoactive bowel sounds, soft, non-tender abdomen, no palpable masses Neurologic: AAOx3, No weakness (motor 5/5 bialt LE) Psychiatric: agitated, poor insight, other (concentration 7/) ICD10 Worksheet Patient Problems: Problems Problem Status Onset MRSA (methicillin resistant Staphylococcus aureus) Chronic 08/13/15 Cellulitis of right lower extremity Acute Diarrhea Acute Hypotension Acute Volume depletion Acute Acute renal failure Acute Peripheral edema Acute CHF (congestive heart failure) Acute Cannot walk Acute Failure to thrive Acute Palliative care encounter Acute
[2017-07-09] MEDS: ATORVASTATIN CALCIUM 20 MG TAB PO SCH (19:38)
[2017-07-09] MEDS: BIOTENE DRY MOUTH MOUTHWASH 237 ML BTL MM SCH (19:38)
[2017-07-09] MEDS: MIRTAZAPINE 15 MG TAB PO SCH (19:38)
[2017-07-10] MEDS: LEVOTHYROXINE 125 MCG TAB PO SCH (04:42)
[2017-07-10] MEDS: BIOTENE DRY MOUTH MOUTHWASH 237 ML BTL MM SCH ×4 (04:42→20:41)
[2017-07-10] MEDS: DOXYCYCLINE HYCLATE 100 MG CAP/TAB PO SCH (09:36)
[2017-07-10] MEDS: PANTOPRAZOLE SODIUM 40 MG TAB PO SCH (09:37)
[2017-07-10] MEDS: FUROSEMIDE 20 MG TAB PO SCH (09:37)
[2017-07-10] MEDS: CHOLECALCIFEROL VIT D3 1,000 UNITS TAB PO SCH (09:37)
--- NOTE | 2017-07-10 13:12 | ASMTCMCOM ---
CM Note CM Note Notes: lenoirlaina [facility] has accepted pt but she continue to refuse to go there.Dr Pichardo met with pt today and she is unable to accept the fact that she cannot return to [facility] rehab. Asked son Olaf to talk with her ([phone]). Olaf wants to be kept informed about pt. Dr Pichardo is hoping for DC tomorrow. Date Signed: 07/10/2017 01:11 PM Electronically Signed By:Yovana Albright LCSW
[2017-07-10] MEDS ORDERED: POTASSIUM CL 20 MEQ TAB PO ONE (17:11)
--- NOTE | 2017-07-10 17:14 | HOSPPROG ---
Hospitalist Progress Note Assessment/Plan: Assessment: 82 yo F p/w acute lower GI hemorrhage resulting in acute blood loss anemia, hypotension, ELBA Plan: #Acute lower GI bleed with acute blood loss anemia, location sigmoid colon, uncertain lesion: 2 U packed red blood cells transfused, EGD w/o lesions, bleeding scan positive in bowel w/ angiography blush in sigmoid - patient declined colonoscopy, GI signed off - PPI daily - monitor outpt Hgb level - patient received palliative care here, will have outpt pall care consultation given that she has expressed ideas consistent with Do Not Hospitalized, but she should have this decision revisited and confirmed in outpt setting # Hypotension: resolved, 2/2 above #Permanent AF: rate-controlled chronically, cont bblocker - holding ASA #Chronic systolic (EF 43%) and diastolic HF, chronic LE edema - restart home PO lasix, supp K #Deconditioning: h/o falls. Requiring SNF, patient declining the SNF for which she was authorized, case mgmt to continue working on patient's placement options - very high fall risk here in the hospital - PT/OT. Referral for SNF pending - counseled patient that [facility] is only facility to accept her, and she is declining [facility] specifically #Right buttock pressure injury: present on admission. -Wound care nurses are managing, uncomplicated #hypothyroidism: LT4 #NSVT: one episode. Lytes at goal. #hx of MRSA infection: chronic immunosupression with Doxycycline #Morbid Obesity: BMI 40.3, increased risk of falls, morbidity #Depression: Remeron Diet. Regular PPx. On SCDs, hold pharm given bleed Code. DNR Dispo. ADD uncertain, pending safe placement, case mgmt actively working w/ patient to find location. Subjective: patient reports no pain, wants to discharge Objective: Vital Signs Temp Pulse Resp BP Pulse Ox 36.6 C 78 18 98/58 L 93 07/10/17 13:15 07/10/17 13:15 07/10/17 13:15 07/10/17 13:15 07/10/17 13:15 Laboratory Results 07/08/17 04:40 07/08/17 04:40 07/09/17 07/10/17 07/11/17 05:59 05:59 05:59 Intake Total 550 500 Balance 550 500 PT 16.4 SEC (12.0-15.0) H 12/12/17 09:35 INR 1.30 (0.83-1.16) H 07/06/17 09:35 - Physical Exam Constitutional: not in pain, chronically ill appearing, obese, unkempt, No uncomfortable Cardiovascular: irregularly irregular, No systolic murmur, No tachycardia, No edema Respiratory: no respiratory distress, no rales or rhonchi, clear to auscultation Gastrointestinal: normoactive bowel sounds, soft, non-tender abdomen, no palpable masses Neurologic: AAOx3, sensation intact bilaterally, No weakness Psychiatric: not anxious, not encephalopathic, flat affect, agitated ICD10 Worksheet Patient Problems: Problems Problem Status Onset MRSA (methicillin resistant Staphylococcus aureus) Chronic 08/13/15 Cellulitis of right lower extremity Acute Diarrhea Acute Hypotension Acute Volume depletion Acute Acute renal failure Acute Peripheral edema Acute CHF (congestive heart failure) Acute Cannot walk Acute Failure to thrive Acute Palliative care encounter Acute
[2017-07-10] MEDS: ATORVASTATIN CALCIUM 20 MG TAB PO SCH (20:41)
[2017-07-10] MEDS: MIRTAZAPINE 15 MG TAB PO SCH (20:41)
[2017-07-10] MEDS ORDERED: POTASSIUM CL 20 MEQ/15 ML UDCUP PO ONE (23:15)
[2017-07-11] MEDS: LEVOTHYROXINE 125 MCG TAB PO SCH (04:54)
[2017-07-11] MEDS: BIOTENE DRY MOUTH MOUTHWASH 237 ML BTL MM SCH ×2 (04:54→12:21)
[2017-07-11 05:48] LABS: % IMMATURE GRANULYOCYTES 0.6 % (0.0-1.1); ABSOLUTE IMMATURE GRANULOCYTES 0.05 10^3/uL (0.00-0.10); ADD DIFF? NO; ADD MORPH? NO; ADD SCAN? NO; ATYPICAL LYMPHOCYTE FLAG 0 (0-99); FRAGMENT RBC FLAG 20 (0-99); HEMOGLOBIN 9.3 g/dL (12.6-16.3); LEFT SHIFT FLG 10 (0-99); LIPEMIA HEMOLYSIS FLAG 80 (0-99); MEAN CELL HEMOGLOBIN 30.3 pg (27.9-34.1); MEAN CELL HEMOGLOBIN CONCENTR. 32.1 g/dL (32.4-36.7); MEAN CELL VOLUME 94.5 fL (81.5-99.8); MEAN PLATELET VOLUME 13.1 fL (8.7-11.7); PLATELET CLUMPS FLAG 0 (0-99); PLATELET COUNT 143 10^3/uL (150-400); RED BLOOD CELL COUNT 3.07 10^6/uL (4.18-5.33); RED CELL DISTRIBUTION WIDTH 19.7 % (11.5-15.2)
[2017-07-11 06:02] LABS: ANION GAP 10 mEq/L (8-16); CALCIUM 9.1 mg/dL (8.5-10.4); CARBON DIOXIDE 23 mEq/l (22-31); CHLORIDE 109 mEq/L (97-110); CREATININE 0.7 mg/dL (0.6-1.0); GLOMERULAR FILTRATION RATE > 60; GLUCOSE 85 mg/dL (70-100); POTASSIUM 4.4 mEq/L (3.5-5.2); SODIUM 142 mEq/L (134-144)
[2017-07-11] MEDS: PANTOPRAZOLE SODIUM 40 MG TAB PO SCH (08:03)
[2017-07-11] MEDS: DOXYCYCLINE HYCLATE 100 MG CAP/TAB PO SCH (08:03)
[2017-07-11] MEDS: FUROSEMIDE 20 MG TAB PO SCH (08:03)
[2017-07-11] MEDS: CHOLECALCIFEROL VIT D3 1,000 UNITS TAB PO SCH (08:03)
[2017-07-11 12:30] VITALS: BP 115/76; PULSE 67; RESP 17; TEMP 207.1; O2SAT 100
--- NOTE | 2017-07-11 12:46 | PDIAF ---
- Diagnosis Diagnosis: UGIB, Acute blood loss anemia, Permanent Afib Code Status: Do Not Resuscitate - Medication Management Discharge Medications: Medications to Continue on Transfer Cholecalciferol Vit D3 [Vitamin D3 (*)] 2,000 units PO DAILY 08/30/15 [Last Taken 06/08/17] Magnesium Hydroxide [Milk of Magnesia (*)] 30 ml PO DAILY PRN 08/30/15 [Last Taken Unknown] Mirtazapine [Remeron] 15 mg PO HS 08/30/15 [Last Taken 06/07/17] Simvastatin 40 mg PO HS 08/30/15 [Last Taken 06/06/17] Sodium Chloride [Deep Sea] 2 ml NS PRN PRN 08/30/15 [Last Taken Unknown] Doxycycline Hyclate 100 mg PO DAILY 06/08/17 [Last Taken 06/07/17] Levothyroxine [Synthroid 125 mcg (*)] 125 mcg PO DAILY06 06/08/17 [Last Taken Unknown] Furosemide [Lasix 20 MG (*)] 20 mg PO DAILY #30 tab 06/14/17 [Last Taken Unknown ] Metoprolol Succinate Xr [Toprol Xl 25 mg (*)] 12.5 mg PO DAILY #30 tab.sr [Last Taken Unknown] Ondansetron Odt [Zofran Odt 4 mg (*)] 4 mg PO Q4 PRN 06/29/17 [Last Taken Unknown] traMADol [Ultram 50 mg (*)] 50 mg PO Q6 PRN 06/29/17 [Last Taken Unknown] Gluc Oxid/l-Peroxid/Muramidase [Biotene Mouthwash (*)] 10 ml MM QID bottle [Last Taken Unknown] Pantoprazole Sodium [Protonix 40mg (*)] 40 mg PO DAILY tab 07/11/17 [Last Taken Unknown] Senior Market Research Analyst Antibiotics: PPx Doxycycline 100mg daily PO Discharge Medications: Refer to the Discharge Home Medication list for PRN reason. PICC Care - Routine: N/A - Orders Services needed: Registered Nurse, Certified Agency Sales Development Associate, Master Manufacturing Sr Engineer (ongoing home safety conversation, ongoing palliative care discussions), Physical Therapy, Occupational Therapy Isolation Type: None Oxygen: 2L NC continuous Diet Recommendation: cardiac -low fat low salt Weigh Patient: weekly Link: Not applicable - Follow Up Care Current Providers and Referrals: Patient,NotPresent [Unknown] - As per Instructions Quang Rodriguez MD [Medical Doctor] - (if patient would like further GI consultation)
--- NOTE | 2017-07-11 15:01 | ASDISCHSUM ---
Discharge Information Plan Status:SNF Medically Cleared to Leave:07/10/2017 Discharge Date:07/11/2017 02:58 PM CM D/C Disposition:Fdc Facility ADT D/C Disposition:Fdc Facility Projected Discharge Date:07/11/2017 02:30 PM Transportation at D/C:ALS/BLS Discharge Delay Reason: Follow-Up Date:07/11/2017 02:30 PM Discharge Slot:2 - 12:01 pm - 18:00 pm Final Diagnosis:GIB, Anemia, Afib Placement Information Referral Type:*Alf/SNF Referral ID:[id number] Provider Name:[facility] Address 1:[address] Address 2: City:[place] Selection Factors: State:[place] Referral Type:Palliative Care Referral ID:[id number] Provider Name:[facility] Address 1:[address] Phone Number: Address 2: Fax Number: [facility]:[place] Selection Factors: State:[place] Patient Contact Information Contact Name:CHARISMA Relationship:Son Address: Work Phone: City: [facility] Phone: State/Zip Code: Email: Financial Information Financial Class:Medicare Advantage Plans Primary Plan Desc:[employer] Primary Plan Number:[id number] Secondary Plan Desc: Secondary Plan Number: Assessment Information [facility] Initial CM Assessment Living Arrangements What is your living Answers: Alone arrangement? Who do you live with? Type Of Residence What kind of residence do Answers: Assisted Living you live in? Type of Residence Facility Name Notes: [facility] Discharge Plan Comments Coordination Status Comments Notes: Pt is a 82 y/o female admitted for CHF and FTT. Pt was recently here at [facility] on 06/09 and discharged to [facility] for rehab. CM received a call from Nory from [facility] (P#: [phone]) and she is recommending that pt goes to SNF at this time. Nory feels that it would be unsafe for pt to return to assisted living. CM spoke w/ Stalney RN regarding d/c POC. Therapies have been ordered and awaiting recommendation. Needs are TBD at this time. CM to follow. Plan: TBD Date Signed: 06/30/2017 11:48 AM Electronically Signed By:JOHN Diana [facility] ALEJANDRA Progress Note CM Note CM Note Notes: CM met w/ pt for dispo planning. CM spoke w/ Nory from [facility]. Nory reiterated that pt will not be able to return if she does not go to rehab. Pt is agreeable to going to [facility]. Referral sent to [facility]. Non triggering PASRR completed. After pt worked w/ PT, pt reported that she would like to live near her daughter in [place], [place]. However, pt has not spoken to daughter and does not have daughter's phone number. Pt reports that she is angry that she is not in control of her decision making. Pt stated that this is not the life she wants to live. CM spoke w/ Dr. Figueroa regarding d/c POC. Dr. Figueroa will put in order for palliative and spiritual care. CM left a msg for son and requested a call back. Needs are TBD at this time. CM to follow. Plan: TBD Date Signed: 07/01/2017 03:13 PM Electronically Signed By:JOHN Diana [facility] ALEJANDRA Progress Note ALEJANDRA Note ALEJANDRA Note Notes: Imtiaz from [facility] report that they do not accept pts insurance. CM met w/ pt for dispo planning. Pt is agreeable to having referrals made to [facility] and to [facility]. Referrals made to both facilities. CM called Nory at [facility] and provided her updates. CM left a msg for pts son and requested a call back. CM to follow. Plan: [facility] Date Signed: 07/02/2017 11:19 AM Electronically Signed By:JOHN Diana [facility] ALEJANDRA Progress Note ALEJANDRA Note CM Note Notes: CM spoke w/ son regarding d/c POC. Son is requesting a nutrition consult. CM communicated this w/ Dr. Figueroa. Son reports that pt has a hx of heart attacks and strokes. CM recieved a call from Dayami from [facility] and was informed that pt may only have 5 days of 100% covered medicare days of rehab. After 21 days of rehab pt will owe $165/day. CM spoke w/ Elisha, crane manager regarding d/c POC. Pt is agreeable to having a referral made to [facility]. [facility]. CM communicated this w/ son. CM to follow. Date Signed: 07/02/2017 04:29 PM Electronically Signed By:JOHN Diana [facility] ALEJANDRA Progress Note ALEJANDRA Note ALEJANDRA Note Notes: Aydee from [facility] called stating she had talked to a nurse who told her patient was d/c'ing soon and would be returning to [facility]. Aydee was concerned because they do not have any medical support services at [facility]. Clarifed with Aydee , patient had to return to the ICU as a result of some complications and would not be ready for d/c for another 2-3 days. The d/c plan is for patient to go to SNF rehab. Her first choice , [facility] has denied patient due to insurance limitations. We will continue to locate another facility that she is willing to go to. Patient is scheduled to return to the floor today. CM will follow. Date Signed: 07/07/2017 12:18 PM Electronically Signed By:Enriqueta Guido LCSW [facility] ALEJANDRA Progress Note CM Note CM Note Notes: Pt transferred to yesterday. PT/OT recommending SNF but pt only has 5 days left that insurance will cover and then she will need to pay $165/day. Attempted to discuss with pt but she was angry and not interested in discussing it. Spoke with son Olaf in [place]. Olaf states that there is no money for pt's co-pay. However, he thought she had LTC Medicaid but did not know for sure. He would approve of pt going to a SNF for her 5 more days and then going to a LTC mcaid bed until she was ready to return to [facility]. Spoke with Aydee at ([phone]) who confirmed that pt does have LTC mcaid. She also stated that Pt has been depressed and agry at and "doesn't seem to want to carry on." Called [facility] where pt had 15 days of rehab in May. Sachin stated they would take her back and do the paperwork to get her approved to move into a LTC bed there. Will call on back tomorrow and discuss rehab options with him. CM will continue to follow. Date Signed: 07/08/2017 04:31 PM Electronically Signed By:Yovana Albright LCSW [facility] CM Progress Note CM Note CM Note Notes: [facility] met with pt today and agreed to take her. They discovered that her LT medicaid had elasped 06/24 and they had pt sign a form that alows them to work with state to reinstate. Called son who is in agreement with plan. Pt does not want to go back to [facility] b/c she states sat in a chair all day. Shaye from [facility] states that pt is not remebering her therapies. Pt also thinks she is lying in bed at [facility] and told OT that even though she qworked with PT 3 hours earlier. Son, Olaf, will call pt and try to talk with her about SNF and [facility]. So far [facility] has refused pt and [facility] and [facility] are not good fits b/c they don't take [facility] Medicaid. C/M to follow. Date Signed: 07/09/2017 03:25 PM Electronically Signed By:Yovana Albright LCSW [facility] CM Progress Note CM Note CM Note Notes: [facility] has accepted pt but she continue to refuse to go there.Dr Pichardo met with pt today and she is unable to accept the fact that she cannot return to [facility] withour rehab. Asked son Olaf to talk with her ([phone]). Olaf wants to be kept informed about pt. Dr Pichardo is hoping for DC tomorrow. Date Signed: 07/10/2017 01:11 PM Electronically Signed By:Yovana Albright LCSW Case Management Discharge Plan Note Case Management Discharge Discharge Order Complete? Answers: Yes Patient to Obtain Answers: Other Notes: [facility] Medications Transportation Arranged Answers: [facility] will Pick (Date 07/11/2017 02:30 PM & Time) Case Management Transport Answers: Yes Notes: [facility] Form Complete Faxed Final Orders Answers: Yes Notes: [facility] Agency/Facility Transfer Answers: Yes Notes: [facility] Report Printed & Faxed to Receiving Agency Discharge Comments Notes: Patient explained the need for SNF Rehab and the possibility of needing her Medicaid re-enstated for LTC. Patient needs a 3 person assist at this time. She has agreed to go to [facility]. Date Signed: 07/11/2017 01:41 PM Electronically Signed By:Lupe Shaffer LCSW Intervention Information Intervention Type:*Incorrect Registration Date of Service:06/30/2017 08:57 AM Patient Type:Inpatient Staff Member:BIANCA Dunham, Ceci Hours: Discipline: Severity: Comment: Intervention Type:*VALENZUELA-Signed Date of Service:06/30/2017 02:14 PM Patient Type:Observation Staff Member:Sandra Cordova Hours: Discipline: Severity: Comment:
--- NOTE | 2017-07-11 16:29 | PDDCSUM ---
Discharge Summary Discharge Summary: DISCHARGE SUMMARY FOLLOW-UP ITEMS: Continue to offer palliative care and hospice consultations as outpatient DATE OF ADMISSION: 06/29/2017 DATE OF DISCHARGE: 07/11/2017 DISCHARGE DIAGNOSES: 1. Acute lower gastrointestinal hemorrhage 2. Acute blood loss anemia 3. Acute hypotension 4. Permanent atrial fibrillation 5. Chronic systolic and diastolic congestive heart failure 6. Chronic deconditioning 7. Morbid obesity with BMI 40.3 8. Right buttock pressure injury present on admission 9. Acute atelectasis CONSULTATIONS: Gastroenterology, palliative care PROCEDURES / IMAGING: Upper endoscopy demonstrating no clearly identifiable lesions, bleeding scan positive in the bowel with angiography blush in the sigmoid colon CHIEF COMPLAINT: Acute bloody bowel movements SUBJECTIVE: Patient is feeling well at time discharge, she is not experiencing any abdominal pain, her bowel movements are normal in color and frequency PHYSICAL EXAM ON DISCHARGE: Systolic blood pressure is 92-128, heart rate 80, afebrile overnight, satting well on 1-2 L nasal cannula, alert awake oriented x3, chronically ill-appearing , morbidly obese, abdomen is soft nontender nondistended, bowel sounds are present, heart rhythm is irregularly irregular without tachycardia, lungs are clear to auscultation in the superior anterior gonzalez LABS ON DISCHARGE: Hemoglobin 9.3, platelets 223845, potassium 4.4, creatinine 0.7, white blood cell count 8300 HOSPITAL COURSE BY PROBLEM: 1. Acute lower gastrointestinal hemorrhage. Patient experienced acute GI bleed from her sigmoid colon and required 2 U of packed red blood cells for her resultant acute blood loss anemia. The bleeding lesion was done identified, as the patient declined a colonoscopy. She did undergo upper endoscopy which demonstrated no upper GI lesion, and she underwent a bleeding scan with angiography which demonstrated a blush in the sigmoid colon, potentially secondary to a bleeding mass versus diverticulum. Since the patient did not want further medical intervention, palliative consultation was performed, but the patient did not participate fully in the palliative discussions. Will be further discussed below. The patient is currently declining any further treatment for her GI issues, and if she changes her mind, she can have an outpatient appointment GI of the [facility]. She will be continued on a proton pump inhibitor daily, and since she does not want any further intervention, no repeat labs will be performed as an outpatient. 2. Acute hypotension. Secondary to acute blood loss, did not cause overt shock , resolved. 3. Permanent atrial fibrillation. Patient is chronically rate controlled on a low-dose beta-joe, continued. Her aspirin has been discontinued secondary to her GI bleed. 4. Chronic systolic and diastolic congestive heart failure. Ejection fraction is 43%, she has diastolic dysfunction, she has chronic lower extremity edema, and did receive 1 dose of IV Lasix during this hospitalization, but we would not consider this an overt CHF exacerbation and she was stabilized on her oral Lasix with potassium supplement. 5. Deconditioning. Patient is chronically deconditioned and she has a history of recurrent falls at her assisted living facility, [facility]. Patient is currently unsafe to reside in [facility], and she requires nursing home facility for ongoing therapy and reassessments. Given the patient's concomitant morbid obesity, I suspect the patient will require long-term care at [facility]. The patient's hospitalization was extended secondary to the patient not agreeing to go to [facility], but when all other options were gallstone, she did agree on 07/11. The patient's son and only family member contact has moved to [place], and is not available to provide any additional care outside of the nursing home facility. 6. Pressure injury. Right buttock, present on admission, patient received wound care. 7. Acute atelectasis. Present on chest imaging, discharged on incentive spirometer and some mild supplemental oxygen. Patient likely also has a hypoventilatory component secondary to her morbid obesity. This will most likely involve into chronic hypoxic respiratory failure and should be reassessed in the outpatient setting. DISCHARGE MEDICATIONS: Please see official discharge medication reconciliation sheet in chart , continue home medications with discontinuation of aspirin. DISCHARGE INSTRUCTIONS: Please have outpatient palliative and hospice reassessments. TIME SPENT: Greater than 30 minutes were spent on direct patient care, as well as discharge planning and preparation.
== END 2017-07-11 14:58 | DRG 314 ==
LOC: EDUNIT# → EDBD → INTOOBSV 21:52 → F2W 23:17 → OBSVTOIN 07-01 15:21 → F2N 07-04 22:30 → F1N 07-07 17:43
PROVIDERS: ADMIT Hospitalist; ATTEND Hospitalist
PROC: 02HV33Z Insertion of Infusion Device into Superior Vena Cava, Percutaneous Approach (ICD-10-PCS; 2017-07-05)
PROC: 30233N1 Transfusion of Nonautologous Red Blood Cells into Peripheral Vein, Percutaneous Approach (ICD-10-PCS; 2017-07-05)
PROC: 0DB68ZX Excision of Stomach, Via Natural or Artificial Opening Endoscopic, Diagnostic (ICD-10-PCS; principal; 2017-07-05 13:45)
PROC: 0DJ08ZZ Inspection of Upper Intestinal Tract, Via Natural or Artificial Opening Endoscopic (ICD-10-PCS; principal; 2017-07-05 13:45)
PROC: B4151ZZ Fluoroscopy of Inferior Mesenteric Artery using Low Osmolar Contrast (ICD-10-PCS; 2017-07-06)
PROC: B4141ZZ Fluoroscopy of Superior Mesenteric Artery using Low Osmolar Contrast (ICD-10-PCS; 2017-07-06)
DX: I95.9 Hypotension, unspecified (principal); I47.2 Ventricular tachycardia; I50.42 Chronic combined systolic (congestive) and diastolic (congestive) heart failure; I87.2 Venous insufficiency (chronic) (peripheral); R53.81 Other malaise; J98.11 Atelectasis; K92.1 Melena; D62 Acute posthemorrhagic anemia; I95.1 Orthostatic hypotension; N17.9 Acute kidney failure, unspecified; I25.10 Atherosclerotic heart disease of native coronary artery without angina pectoris; I25.2 Old myocardial infarction; Z95.5 Presence of coronary angioplasty implant and graft; I48.2 Chronic atrial fibrillation; Z86.73 Personal history of transient ischemic attack (TIA), and cerebral infarction without residual deficits; E66.2 Morbid (severe) obesity with alveolar hypoventilation; Z68.41 Body mass index [BMI] 40.0-44.9, adult; I27.23 Pulmonary hypertension due to lung diseases and hypoxia; L89.313 Pressure ulcer of right buttock, stage 3; E03.9 Hypothyroidism, unspecified; J44.9 Chronic obstructive pulmonary disease, unspecified; J96.10 Chronic respiratory failure, unspecified whether with hypoxia or hypercapnia; Z99.81 Dependence on supplemental oxygen; F32.9 Major depressive disorder, single episode, unspecified; Z86.14 Personal history of Methicillin resistant Staphylococcus aureus infection; Z79.2 Long term (current) use of antibiotics
CPT/HCPCS: 97110-GP; 97116-GP; 97162-GP; 97166-GO; 97530-GO; 97530-GP; 97535-GO; A9560; C1751; C1760; C1769; C1894; G0378; G8978-GP-CL; G8979-GP-CI; G8987-GO-CM; G8988-GO-CJ; J1642; J1644; J1650; J2405; J3010; P9016; P9047; Q9967